=== PATIENT | male | born 1965 | race African-American/Black ===

== ENCOUNTER 2020-01-30 18:50 | Emergency (ER) | payer SELFPAY ==
[2020-01-30 18:52] VITALS: BP 164/97; PULSE 67; RESP 17; TEMP 36.7; O2SAT 99; BMI 32.1
--- NOTE | 2020-01-30 20:13 | ED.VIS.GEN ---
History of Present Illness Chief Complaint: Male Pain/Injury Informant: Patient Narrative: Patient presents after concern for an STD. He states he had unprotected intercourse last week and by the middle week was experiencing a penile discharge and dysuria. States he believes he had a STD many years ago. He denies any fevers rashes or sores. Past Medical History - Allergies and Home Meds Allergies/Adverse Reactions: Allergies No Known Allergies Allergy (Verified 01/30/20 18:52) Primary Care Physician: Care Physician,No Primary [Primary Care Provider] - Smoking Status: Current every day smoker Review of Systems General: Denies: Chills, Fever, Sweats Eyes: Denies: Visual changes - bilaterally, Diplopia ENT: Denies: Rhinorrhea, Sore throat Cardiovascular: Denies: Chest pain, Palpitations Respiratory: Denies: Dyspnea, Cough, Dyspnea on exertion Gastrointestinal: Denies: Abdominal pain, Nausea, Vomiting, Diarrhea, Melena, Hematochezia Genitourinary: Reports: Dysuria, - - Penile drainage. Denies: Hematuria, Frequency Musculoskeletal: Denies: Back pain, Extremity Pain Skin: Denies: Rash, Wounds Neurological: Denies: Headache, Weakness, Numbness Physical Exam Vital Signs/Narrative: Vital Signs Temp Pulse Resp BP Pulse Ox 01/30/20 18:52 98.1 F 67 17 164/97 H 99 Inital Vital Signs reviewed: Yes General: Well nourished, Well developed, No Acute Distress Head: Normocephalic, Atraumatic Eyes: Perrl, EOMI ENT: Moist mucous membranes, No rhinorrhea Neck: Supple, Nontender Cardiovascular: Regular rate, Regular rhythm, No murmurs Respiratory: No distress, CTA bilaterally, Chest nontender Abdomen: Soft, Nontender, Nondistended, Normal bowel sounds : - - Patient is circumcised. There is a light yellow clear drainage at the urethral meatus. There are no chancres or other skin lesions noted Back: Nontender, Normal Inspection Extremities: Nontender, No edema Skin: Normal color, No rash Neurological: Alert, Oriented x3, Cranial nerves II-XII grossly intact, Normal Strength, Normal Sensation Psychological: Normal affect, Normal Mood Diagnostic/Tx/Re-eval - Medical Decision Making GC and Chlamydia will be sent as well as urine culture. He will be treated with Rocephin and azithromycin. [facility] care physician for further STD checks. ED Disposition - Plan for ED Patient: Disposition: Home or Assisted Living Diagnosis: Urethritis Instructions: URETHRITIS, Male (GC vs. Chlam) Additional Instructions: I would strongly urge you not to have unprotected intercourse. He should have further STD testing for syphilis and HIV. Please contact [facility].
[2020-01-30] MEDS: Ceftriaxone 500 MG Vial 250 MG IM (20:49)
[2020-01-30] MEDS: Azithromycin 250 MG Tablet 1000 MG PO (20:49)
[2020-01-30 20:52] VITALS: BP 145/86; PULSE 85; RESP 16; O2SAT 97
--- NOTE | 2020-01-30 21:12 | ED.RN ---
PT OBSERVED FOR SHOT TIME GREATER THAN 15 MINUTES, NO REACTION NOTED BY THIS NURSE. PT D/C
[2020-01-30 22:43] LABS: Chlamydia Trachomatis by PCR Negative (Negative); Probe Check PASS
[2020-01-30 22:46] LABS: Neisserai gonorrhoeae by PCR Positive (Negative)
--- NOTE | 2020-01-30 23:01 | ED.RN ---
LAB RESULTS GIVEN TO DR LÓPEZ. PT ALREADY APPROPRIATELY TREATED PER DR LÓPEZ. NO FURTHER TREATMENT. ATTEMPTED TO CONTACT PT. LEFT A MESSAGE
--- NOTE | 2020-01-30 23:05 | ED.RN ---
THIS NURSE NOTIFIED PT OF HIS RESULTS.
== END 2020-01-30 21:12 | disposition home or self-care (01) ==
LOC: ED 20:29
PROVIDERS: Emergency Provider Emergency Medicine
DX: N34.2 Other urethritis (principal); F17.200 Nicotine dependence, unspecified, uncomplicated
CPT/HCPCS: 87086; 87088; 87491; 87591; 96372; 99283

== ENCOUNTER 2020-05-07 16:55 | Inpatient (IN) | payer SELFPAY ==
[2020-05-07 16:56] VITALS: BP 152/93; PULSE 60; RESP 18; TEMP 36.7; O2SAT 100; BMI 28.5
--- NOTE | 2020-05-07 17:12 | CT_ITS ---
STUDY: CT ABDOMEN AND PELVIS WITH CONTRAST REASON FOR EXAM: Male, 54 years old. CONSTIPATION X 2 DAYS,RECTAL PAIN AFTER STRAINING TO GET STOOL OUT RADIATION DOSAGE (If Supplied By Facility): CTDIvol = ( 21.78 ) mGy, DLP = ( 2338.49 ) mGycm TECHNIQUE: Transaxial images were obtained from the dome of the diaphragm to the symphysis pubis without oral contrast. IV 100mL Isovue-370 was administered. Sagittal and coronal images were reconstructed. Individualized dose optimization techniques were used for this CT. COMPARISON: None. FINDINGS: The visualized lung bases are unremarkable. The visualized portions of the heart are within normal limits. Subcentimeter hypodensity of the right liver. Otherwise normal right liver. Nondistended normal appearing gallbladder. Normal spleen. Normal pancreas. There is a hypoattenuating left upper quadrant mass measuring 10.2 x 6.0 x 6.6 cm situated anterior to the spleen to the left of the stomach anterior and just above the pancreatic tail. The diaphragm is above and has no contact with the left kidney and is separate from the splenic flexure of the colon. This mass appears separate from the tail of the pancreas and is most intimately associated with the left lateral wall of the stomach from which it is not separable Normal bilateral adrenal glands. Multiple cortical scars of the right kidney. Otherwise normal right kidney without hydronephrosis, renal or ureteral stones. Multiple shallow cortical scars of the left kidney without hydronephrosis, renal or ureteral stones. Normal visualized stomach. Normal small intestine. The colon is nondistended with a moderate amount of stool in the proximal and left colon. The distal colon is decompressed. There is a you shaped fluid collection surrounding the rectum on the left, posterior and right surfaces which is approximately 1.8 cm in thickness and 4.6 cm in length on the longer left side. Small amount of air is present on the left side. Process remains below the levator ani muscle. There is non-visualization of the appendix. Minimal plaque of the aorta. Normal inferior vena cava. Normal retroperitoneum. Walled urinary bladder currently empty. Shotty inguinal lymph nodes. 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 CT/Abdomen/Pelvis W IV Cont ONLY IMPRESSION: Saddlebag shaped fluid collection surrounds the rectum from the right side, left side and posteriorly which is 1.8 cm in thickness and 4.6 cm in length with a small amount of air present on the left. Findings consistent with a perirectal abscess. Otherwise no small bowel or colon findings. Negative for evidence of obstruction, perforation or other inflammatory changes. A moderate amount of stool is present throughout most of the colon. Hypoattenuating 10.2 x 6.0 x 6.6 cm mass of the left upper quadrant situated between the major organs as described above but most intimately associated with the left lateral wall of the proximal stomach. 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 Appears to be separate from the spleen, pancreas, colon or left kidney. Subcentimeter hypodensity of the right liver which is too small to accurately assess. Otherwise normal right liver. Nondistended gallbladder, normal spleen and pancreas. Multifocal areas of cortical scarring in the kidneys. No acute renal findings. Negative for hydronephrosis or stones. Thick walled urinary bladder currently nondistended. Mild atherosclerotic changes and tortuosity of the aortic and iliac vessels without aneurysm. Bilateral shotty inguinal adenopathy. Electronically Signed: Nguyen Coronel MD at 19:00 EDT , Service support ,
--- NOTE | 2020-05-07 17:13 | ED.VIS.GEN ---
History of Present Illness Chief Complaint: Other, Pain/Inj Detail of Chief Complaint: rectal pain Informant: Patient Onset: Days - 2 Context: Gradual Onset Timing: Continuous Quality: pain Location: anus/rectum Current Severity: Moderate Maximum Severity: Severe Worsened by: sitting on affected area, BMs, urinating Relieved by: nothing Associated Symptoms: no abd pain, fevers, n/v Narrative: Patient states he was constipated for a couple days, having very hard stools and was doing some straining to get them out. He states at some point his bowel movements came back to normal, he has been having them, and started having this rectal pain. It has been worsening. It is constant. Does not radiate, no abdominal pain, nausea, vomiting, fevers, discharge, bleeding, melena. He does not have dysuria, but he has noticed he is not making quite as strong a stream of urine, it is going more frequently. No hematuria. Past Medical History - Allergies and Home Meds Allergies/Adverse Reactions: Allergies No Known Allergies Allergy (Verified 05/07/20 16:56) Primary Care Physician: Care Physician,No Primary [Primary Care Provider] - Past Medical History: None Smoking Status: Current every day smoker Review of Systems General: Denies: Chills, Fever, Sweats Eyes: Denies: Visual changes - bilaterally, Diplopia ENT: Denies: Rhinorrhea, Sore throat Cardiovascular: Denies: Chest pain, Palpitations Respiratory: Denies: Dyspnea, Cough, Dyspnea on exertion Gastrointestinal: Reports: Constipation. Denies: Abdominal pain, Nausea, Vomiting, Diarrhea, Melena, Hematochezia Genitourinary: Reports: Frequency, - - rectal pain. Denies: Dysuria, Hematuria Musculoskeletal: Denies: Back pain, Swelling, Extremity Pain Skin: Denies: Rash, Wounds Neurological: Denies: Headache, Weakness, Numbness Physical Exam Vital Signs/Narrative: Vital Signs Temp Pulse Resp BP Pulse Ox 05/07/20 16:56 98.1 F 60 18 152/93 H 100 Inital Vital Signs reviewed: Yes General: Well nourished, Well developed, No Acute Distress Head: Normocephalic, Atraumatic Eyes: Perrl, EOMI ENT: Moist mucous membranes, No rhinorrhea Neck: Supple, Nontender Cardiovascular: Regular rate, Regular rhythm, No murmurs Respiratory: No distress, CTA bilaterally, Chest nontender Abdomen: Soft, Nontender, Nondistended, Normal bowel sounds Rectal: Guaiac negative - 9 O'clock and 12 o'clock areas without palpable mass/swelling/lesion. No thrombosed hemorroid. Single skin tag vs. external hemorrhoid, very small, nontender, no sign of recent bleeding, opposite tender perianal area. no redness or obvious abscess. MACY deferred due to pain/tenderness., Tenderness - 9 O'clock and 12 o'clock areas without palpable mass/swelling/lesion. No thrombosed hemorroid. Single skin tag vs. external hemorrhoid, very small, nontender, no sign of recent bleeding, opposite tender perianal area. no redness or obvious abscess. MACY deferred due to pain. Back: Nontender, Normal Inspection Extremities: Nontender, No edema Skin: Normal color, No rash Neurological: Alert, Oriented x3, Cranial nerves II-XII grossly intact, Normal Strength, Normal Sensation Psychological: Normal affect, Normal Mood Diagnostic/Tx/Re-eval Impressions Abdomen/Pelvis CT 05/07/20 17:12 IMPRESSION: Saddlebag shaped fluid collection surrounds the rectum from the right side, left side and posteriorly which is 1.8 cm in thickness and 4.6 cm in length with a small amount of air present on the left. Findings consistent with a perirectal abscess. Otherwise no small bowel or colon findings. Negative for evidence of obstruction, perforation or other inflammatory changes. A moderate amount of stool is present throughout most of the colon. Hypoattenuating 10.2 x 6.0 x 6.6 cm mass of the left upper quadrant situated between the major organs as described above but most intimately associated with the left lateral wall of the proximal stomach. 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 Appears to be separate from the spleen, pancreas, colon or left kidney. Subcentimeter hypodensity of the right liver which is too small to accurately assess. Otherwise normal right liver. Nondistended gallbladder, normal spleen and pancreas. Multifocal areas of cortical scarring in the kidneys. No acute renal findings. Negative for hydronephrosis or stones. Thick walled urinary bladder currently nondistended. Mild atherosclerotic changes and tortuosity of the aortic and iliac vessels without aneurysm. Bilateral shotty inguinal adenopathy. Electronically Signed: Nguyen Coronel MD at 19:00 EDT , Service support , 05/07/20 17:12 Abdomen/Pelvis W IV Cont ONLY [CT] Stat Laboratory Results 05/07/20 05/07/20 05/07/20 17:20 17:20 18:09 WBC 14.6 H RBC 4.44 L Hgb 13.7 Hct 40.6 MCV 91.4 MCH 30.9 MCHC 33.7 RDW Std Deviation 46.9 H RDW Coeff of Xiao 13.9 Plt Count 289 MPV 9.7 Immature Gran % (Auto) 0.500 Neut % (Auto) 80.1 H Lymph % (Auto) 10.8 L [place] % (Auto) 8.2 Eos % (Auto) 0.2 Baso % (Auto) 0.2 Absolute Neuts (auto) 11.7 H Absolute Lymphs (auto) 1.57 Nucleated RBC % 0 Sodium 138 Potassium 5.2 H Chloride 108 H Carbon Dioxide 25.0 Anion Gap 5 BUN 10 Creatinine 0.99 Estim Creat Clear Calc 93.63 Est GFR (MDRD) Af Amer 101 Est GFR (MDRD) Non-Af 83 BUN/Creatinine Ratio 10.1 Glucose 110 H Calcium 9.2 Urine Color Yellow Urine Clarity Clear Urine pH 6.0 Ur Specific [place] 1.015 Urine Protein 15 H Urine Glucose (UA) Normal Urine Ketones Negative Urine Occult Blood 25 H Urine Nitrite Negative Urine Bilirubin Negative Urine Urobilinogen 1 H Ur Leukocyte Esterase 100 H Urine RBC 0-5 SEEN Urine WBC 10-25 SEEN Ur Squamous Epith Cells 0-5 SEEN Urine Bacteria 2+ Urine Mucus 3+ - Medical Decision Making Labs show a leukocytosis as above and CT was performed since patient had pain was very tender but inspection was relatively unremarkable without signs of any hemorrhoids that would be responsible for her symptoms. This showed presence of a perirectal abscess, in addition to an incidental mass further up in his left upper quadrant. Discussed both of these with the patient and surgery, plan will be for admission, started on Zosyn. Patient is clinically and hemodynamically stable. ED Disposition - Plan for ED Patient: Disposition: Acute Care [facility] Diagnosis: Perirectal abscess, Intraabdominal mass
[2020-05-07] MEDS: Ketorolac 30 MG/ML Syringe 15 MG IV (17:25)
[2020-05-07 17:26] LABS: Absolute Lymphocyte Count 1.57 X10^3/uL (0.83-4.51); Absolute Neutrophil Count 11.7 X10^3/uL (2.0-7.7); Basophil# 0.03 X10^3/uL; Basophil% 0.2 % (0-1); Eosinophil# 0.03 X10^3/uL; Eosinophils% 0.2 % (0-5); Hematocrit 40.6 % (40-54); Hemoglobin 13.7 g/dL (13.0-16.5); Lymphocyte # 1.57 X10^3/ul (4.0); Lymphocyte % 10.8 % (19-41); Mean Corp Hgb Conc 33.7 g/dL (32-36); Mean Corpuscular Hgb 30.9 pg (27.0-32.0); Mean Corpuscular Volume 91.4 fL (80-94); Mean Platelet Vol. 9.7 fl (6.2-12.0); Monocyte% 8.2 % (0-10); NRBC Flagged by Analyzer 0 % (0-5); Neutrophil # 11.65 X10^3/uL (2.7-7.7); Neutrophil % 80.1 % (47-70); Platelet Count 289 K/mm3 (150-450); RBC Distribution Width CV 13.9 % (11.6-14.6); RBC Distribution Width SD 46.9 fl (35.1-43.9); Red Blood Count 4.44 M/mm3 (4.6-6.2); White Blood Count 14.6 K/mm3 (4.4-11.0)
[2020-05-07] MEDS: 0.9% Normal Saline 1,000 ML 1000 ML IV (17:27)
[2020-05-07 18:10] LABS: Anion Gap 5 (5-15); BUN 10 mg/dL (7-18); BUN/Creat Ratio 10.1 RATIO (10-20); Calcium,Total 9.2 mg/dL (8.5-10.1); Chloride 108 mmol/L (98-107); Creatinine, Serum 0.99 mg/dL (0.70-1.30); EST Glomerular Filtration Rate 83 mL/min (>60); Est Glom Filt Rate - Afr Amer 101 mL/min (>60); Estimated Creatinine Clearance 93.63 ml/min; Glucose 110 mg/dL (74-106); Potassium 5.2 mmol/L (3.5-5.1); Sodium Level 138 mmol/L (136-145)
[2020-05-07 18:16] LABS: Color, Urine Yellow (Yellow); Glucose, Dipstick Normal (Normal); Ketone-Dipstick Negative (Negative); Leukocyte Esterase-Dipstick 100 /ul (Negative); Nitrite-Dipstick Negative (Negative); Occult Blood-Urine 25 /ul (Negative); Protein-Dipstick 15 mg/dl (Negative); Specific Gravity, Urine 1.015 (1.002-1.030); Urine Bilirubin Dipstick Negative (Negative); Urine Clarity Clear (Clear); Urine Urobilinogen 1 mg/dl (Normal)
[2020-05-07 18:23] LABS: Bacteria 2+ /hpf (None Seen); Mucous, Urine 3+ /hpf (<or=2+); Red Blood Cells-Urine 0-5 SEEN /hpf (0-5); Squamous Epithelial Cells - UA 0-5 SEEN /hpf (0-5); White Blood Cells 10-25 SEEN /hpf (0-5)
[2020-05-07 19:13] VITALS: BP 145/83; PULSE 58; RESP 18; O2SAT 98
--- NOTE | 2020-05-07 20:20 | PCM.HP.STD ---
Problem List (1) Perirectal abscess Status: Acute History of Present Illness Date of Admission: 05/07/20 The patient is a 54 year old M presents with 1 week of rectal pain. He reports the pain started last weekend and has been slightly getting worse until now. He reports no drainage. No history of abscesses in the past. No fevers or chills or nausea or vomiting. Pain is in the rectal area and does not radiate. Past Medical History Allergies No Known Allergies Allergy (Verified 05/07/20 16:56) Home Medications: Ambulatory Orders Medication Instructions Recorded NK 01/30/20 Surgical History: no surgical history Smoking Status: Current every day smoker - *Family History Maternal History Items: No pertinent history Review of Systems Constitutional: Denies: Anorexia, Chills, Fever Cardiovascular: Denies: Chest Pain Respiratory: Denies: Cough, Shortness of Breath Gastrointestinal: Reports: - - Rectal pain. Denies: Abdominal Pain Genitourinary: Denies: Dysuria, Frequency Skin: Denies: Jaundice Hematologic/ Lymphatic: Denies: Anemia VTE Information - Inpt Only VTE Present on Admission: No VTE Mechan Device Prophylaxis: SCD's Patient Problems: Active and Suspected Problems Perirectal abscess (Acute) Intraabdominal mass (Acute) - Physical Exam Vitals/I&O's: Vital Signs Temp Pulse Resp BP Pulse Ox 98.1 F 58 L 18 145/83 H 98 05/07/20 16:56 05/07/20 19:13 05/07/20 19:13 05/07/20 19:13 05/07/20 19:13 Oxygen Delivery Method Room Air Weight: 210 lb Body Mass Index (BMI) 28.5 Intake and Output for Last 24 Hours 05/05/20 05/06/20 05/07/20 23:59 23:59 23:59 Intake Total 1050 / 1050 Balance 1050 / 1050 General: Alert, Oriented x3, Cooperative, No apparent distress Neck: No JVD Lungs: Normal air movement Cardiovascular: Regular rate, Regular Rhythm Abdomen: Soft, Non Tender, Non-Distended, - - Pain in the posterior perirectal area with no fluctuance or drainage Extremities: No clubbing Musculoskeletal: No Muscle Wasting Neurological: Cranial nerves II-XII grossly intact Psych/Mental Status: Normal Affect Laboratory Results 05/07/20 17:20: WBC 14.6 H, RBC 4.44 L, Hgb 13.7, Hct 40.6, MCV 91.4, MCH 30.9, MCHC 33.7, RDW Std Deviation 46.9 H, RDW Coeff of Xiao 13.9, Plt Count 289, MPV 9.7, Immature Gran % (Auto) 0.500, Neut % (Auto) 80.1 H, Lymph % (Auto) 10.8 L, [place] % (Auto) 8.2, Eos % (Auto) 0.2, Baso % (Auto) 0.2, Absolute Neuts (auto) 11.7 H, Absolute Lymphs (auto) 1.57, Nucleated RBC % 0 05/07/20 17:20: Sodium 138, Potassium 5.2 H, Chloride 108 H, Carbon Dioxide 25.0, Anion Gap 5, BUN 10, Creatinine 0.99, Estim Creat Clear Calc 93.63, Est GFR (MDRD) Af Amer 101, Est GFR (MDRD) Non-Af 83, BUN/Creatinine Ratio 10.1, Glucose 110 H, Calcium 9.2 05/07/20 18:09: Urine Color Yellow, Urine Clarity Clear, Urine pH 6.0, Ur Specific [place] 1.015, Urine Protein 15 H, Urine Glucose (UA) Normal, Urine Ketones Negative, Urine Occult Blood 25 H, Urine Nitrite Negative, Urine Bilirubin Negative, Urine Urobilinogen 1 H, Ur Leukocyte Esterase 100 H, Urine RBC 0-5 SEEN, Urine WBC 10-25 SEEN, Ur Squamous Epith Cells 0-5 SEEN, Urine Bacteria 2+, Urine Mucus 3+ 05/07/20 19:38: COVID-19 (ANKIT) Pending Clinical Impression(s) from Imaging Studies Abdomen/Pelvis CT 05/07/20 17:12 IMPRESSION: Saddlebag shaped fluid collection surrounds the rectum from the right side, left side and posteriorly which is 1.8 cm in thickness and 4.6 cm in length with a small amount of air present on the left. Findings consistent with a perirectal abscess. Otherwise no small bowel or colon findings. Negative for evidence of obstruction, perforation or other inflammatory changes. A moderate amount of stool is present throughout most of the colon. Hypoattenuating 10.2 x 6.0 x 6.6 cm mass of the left upper quadrant situated between the major organs as described above but most intimately associated with the left lateral wall of the proximal stomach. 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 Appears to be separate from the spleen, pancreas, colon or left kidney. Subcentimeter hypodensity of the right liver which is too small to accurately assess. Otherwise normal right liver. Nondistended gallbladder, normal spleen and pancreas. Multifocal areas of cortical scarring in the kidneys. No acute renal findings. Negative for hydronephrosis or stones. Thick walled urinary bladder currently nondistended. Mild atherosclerotic changes and tortuosity of the aortic and iliac vessels without aneurysm. Bilateral shotty inguinal adenopathy. Electronically Signed: Nguyen Coronel MD at 19:00 EDT , Service support , Assessment/Plan All Active Problems Perirectal abscess (Acute) Intraabdominal mass (Acute) 54-year-old male with perirectal abscess 1. Patient has a perirectal abscess seen on CT scan and an elevated white count. I discussed drainage with him in detail. Patient does not show any signs of sepsis and I believe he is stable enough to have drainage in the morning. I will admit him and start him on antibiotics. Plan for incision and drainage in the morning in the operating room and exam under anesthesia and possible fistulotomy. I discussed this with the patient in detail. I discussed the risks including but not limited to bleeding, infection, fecal incontinence, urinary retention, recurrence of abscess, seton placement. The patient understands all of this and is willing to proceed. 2. 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 This is likely just according to the CT scan and it is very large and in close proximity to the spleen. I would recommend that the patient follow-up at a tertiary care center for evaluation for resection of this. I will make a referral when he is discharged. Wilner Li MD Pager: [facility] [address] [place] [address], [address] [place] [address] Office:
[2020-05-07 20:22] VITALS: BP 138/77; PULSE 54; RESP 18; TEMP 36.9; O2SAT 98
[2020-05-07 20:51] VITALS: BMI 28.5; BMI 28.9
[2020-05-07 20:52] VITALS: BP 152/82; PULSE 80; RESP 16; TEMP 36.8; O2SAT 99
[2020-05-07] MEDS: 0.9% Normal Saline 1,000 ML 100 ML IV (22:18)
[2020-05-07] MEDS: oxyCODONE 5 MG Tablet PO (22:27)
[2020-05-07 22:30] VITALS: PULSE 80; RESP 16; O2SAT 99
[2020-05-08] VITALS (14 sets, daily range): BP systolic 108–170; BP diastolic 62–96; PULSE 53–68; RESP 16–18; TEMP 36.7–37.6; O2SAT 94–100; BMI 28.9
[2020-05-08] MEDS: Morphine 2 MG/ML Syringe IV ×3 (01:40→06:58)
[2020-05-08 06:03] LABS: Absolute Lymphocyte Count 1.04 X10^3/uL (0.83-4.51); Absolute Neutrophil Count 10.5 X10^3/uL (2.0-7.7); Basophil# 0.02 X10^3/uL; Basophil% 0.2 % (0-1); Eosinophil# 0.05 X10^3/uL; Eosinophils% 0.4 % (0-5); Hematocrit 37.7 % (40-54); Hemoglobin 12.6 g/dL (13.0-16.5); Lymphocyte # 1.04 X10^3/ul (4.0); Lymphocyte % 8.1 % (19-41); Mean Corp Hgb Conc 33.4 g/dL (32-36); Mean Corpuscular Volume 92.9 fL (80-94); Mean Platelet Vol. 9.9 fl (6.2-12.0); Monocyte# 1.22 X10^3/uL; Monocyte% 9.5 % (0-10); NRBC Flagged by Analyzer 0 % (0-5); Neutrophil # 10.51 X10^3/uL (2.7-7.7); Neutrophil % 81.3 % (47-70); Platelet Count 262 K/mm3 (150-450); Red Blood Count 4.06 M/mm3 (4.6-6.2); White Blood Count 12.9 K/mm3 (4.4-11.0)
[2020-05-08 06:25] LABS: Anion Gap 7 (5-15); BUN 10 mg/dL (7-18); BUN/Creat Ratio 11.3 RATIO (10-20); Calcium,Total 8.8 mg/dL (8.5-10.1); Chloride 108 mmol/L (98-107); Creatinine, Serum 0.89 mg/dL (0.70-1.30); EST Glomerular Filtration Rate 95 mL/min (>60); Est Glom Filt Rate - Afr Amer 115 mL/min (>60); Estimated Creatinine Clearance 104.14 ml/min; Glucose 103 mg/dL (74-106); Potassium 3.6 mmol/L (3.5-5.1); Sodium Level 140 mmol/L (136-145)
--- NOTE | 2020-05-08 07:28 | PN.SURG_ITS ---
Patient Problems: Active and Suspected Problems Perirectal abscess (Acute) Intraabdominal mass (Acute) Subjective: Patient is doing well with less pain this morning - Physical Exam Vitals/I&O's: Vital Signs Temp Pulse Resp BP Pulse Ox 98.5 F 60 16 144/62 H 99 05/08/20 03:39 05/08/20 03:39 05/08/20 03:39 05/08/20 03:39 05/08/20 03:39 Oxygen Delivery Method Room Air Weight: 213 lb 2.992 oz Body Mass Index (BMI) 28.9 Intake and Output for Last 24 Hours 05/06/20 05/07/20 05/08/20 23:59 23:59 23:59 Intake Total 1050 / 1770 720 / 720 Output Total 300 / 300 Balance 1050 / 1770 420 / 420 General: Alert, Oriented x3 Lungs: Normal air movement Abdomen: Soft, Non Tender, Non-Distended Laboratory Results 05/07/20 17:20: WBC 14.6 H, RBC 4.44 L, Hgb 13.7, Hct 40.6, MCV 91.4, MCH 30.9, MCHC 33.7, RDW Std Deviation 46.9 H, RDW Coeff of Xiao 13.9, Plt Count 289, MPV 9.7, Immature Gran % (Auto) 0.500, Neut % (Auto) 80.1 H, Lymph % (Auto) 10.8 L, [place] % (Auto) 8.2, Eos % (Auto) 0.2, Baso % (Auto) 0.2, Absolute Neuts (auto) 11.7 H, Absolute Lymphs (auto) 1.57, Nucleated RBC % 0 05/07/20 17:20: Sodium 138, Potassium 5.2 H, Chloride 108 H, Carbon Dioxide 25.0, Anion Gap 5, BUN 10, Creatinine 0.99, Estim Creat Clear Calc 93.63, Est GFR (MDRD) Af Amer 101, Est GFR (MDRD) Non-Af 83, BUN/Creatinine Ratio 10.1, Glucose 110 H, Calcium 9.2 05/07/20 18:09: Urine Color Yellow, Urine Clarity Clear, Urine pH 6.0, Ur Specific [place] 1.015, Urine Protein 15 H, Urine Glucose (UA) Normal, Urine Ketones Negative, Urine Occult Blood 25 H, Urine Nitrite Negative, Urine Bilirubin Negative, Urine Urobilinogen 1 H, Ur Leukocyte Esterase 100 H, Urine RBC 0-5 SEEN, Urine WBC 10-25 SEEN, Ur Squamous Epith Cells 0-5 SEEN, Urine Bacteria 2+, Urine Mucus 3+ 05/07/20 19:38: COVID-19 (ANKIT) Not Detected 05/08/20 05:24: WBC 12.9 H, RBC 4.06 L, Hgb 12.6 L, Hct 37.7 L, MCV 92.9, MCH 31.0, MCHC 33.4, RDW Std Deviation 48.0 H, RDW Coeff of Xiao 14.0, Plt Count 262, MPV 9.9, Immature Gran % (Auto) 0.500, Neut % (Auto) 81.3 H, Lymph % (Auto) 8.1 L, [place] % (Auto) 9.5, Eos % (Auto) 0.4, Baso % (Auto) 0.2, Absolute Neuts (auto) 10.5 H, Absolute Lymphs (auto) 1.04, Nucleated RBC % 0 05/08/20 05:24: Sodium 140, Potassium 3.6, Chloride 108 H, Carbon Dioxide 25.0, Anion Gap 7, BUN 10, Creatinine 0.89, Estim Creat Clear Calc 104.14, Est GFR (MDRD) Af Amer 115, Est GFR (MDRD) Non-Af 95, BUN/Creatinine Ratio 11.3, Glucose 103, Calcium 8.8 Current Medications Acetaminophen (Tylenol) 650 mg PO Q4H PRN PRN PRN Reason: Pain Score 1-10/10/FEVER Sodium Chloride () 1,000 mls @ 100 mls/hr IV .Q10H [facility] Last Admin: 05/07/20 22:18 Dose: 100 mls/hr Documented by: Piperacillin Sod/Tazobactam (Sod 3.375 gm/ Sodium Chloride) 50 mls @ 12.5 m ls/hr IV Q8 CHARLEEN Last Admin: 05/08/20 03:37 Dose: 12.5 mls/hr Documented by: Sodium Chloride () 250 mls @ 15 mls/hr IV .[id number] PRN PRN Reason: Saline Flush Last Infusion: 05/08/20 03:45 Dose: 0 mls/hr Documented by: Sodium Chloride () 250 mls @ 15 mls/hr IV .[id number] PRN PRN Reason: Additional IVPB Infusion Ketorolac Tromethamine (Toradol (Bkc)) 15 mg IV Q8H PRN PRN PRN Reason: pain 1-10/10 Stop: 05/13/20 06:57 Morphine Sulfate () 2 - 4 mg IV Q2H PRN PRN PRN Reason: Pain Score 4-10/10 Last Admin: 05/08/20 06:58 Dose: 2 mg Documented by: Morphine Sulfate () 2 - 4 mg IV Q2H PRN PRN PRN Reason: Pain Score 4-10/10 Ondansetron HCl (Zofran) 4 mg IV Q6H PRN PRN PRN Reason: NAUSEA Oxycodone HCl (Oxyir) 5 - 10 mg PO Q4H PRN PRN PRN Reason: Pain Score 4-10/10 Last Admin: 05/07/20 22:27 Dose: 10 mg Documented by: Sodium Chloride () 10 - 40 ml IV UD PRN PRN Reason: SALINE FLUSH Medical Necessity - Tobacco Use Smoking Status: Current every day smoker Tobacco Use: Cigarettes Assessment/Plan All Active Problems Perirectal abscess (Acute) Intraabdominal mass (Acute) 54-year-old male with perirectal abscess 1. Patient was started on antibiotics and feels better this morning. White count is decreased. I will take him this morning for incision and drainage of the abscess with possible seton versus fistulotomy. Patient's questions were answered and the patient wishes to proceed. Wilner Li MD Pager: [facility] [address] [place] [address] [address] [place] [address] Office:
[2020-05-08] MEDS: 0.9% Normal Saline 1,000 ML 100 ML IV (08:19)
[2020-05-08] MEDS: Lubricating Jelly 60 GM Tube 30 GM TOPICAL (09:09)
[2020-05-08] MEDS: Bupivacaine Mpf 0.5% 30 ML VIAL (09:10)
--- NOTE | 2020-05-08 10:19 | PCM.OPRPT ---
Problem List (1) Perirectal abscess Status: Acute Report of Operation Date of Procedure: 05/08/20 Pre-Operative Diagnosis: Perirectal abscess Post-Operative Diagnosis: Same Surgery/Procedure Performed:: Exam under anesthesia with incision and drainage of perirectal abscess Specimen's removed: Culture of abscess fluid Drains: Quarter inch iodoform gauze Description of Procedure: Patient was brought to the operating room and general anesthesia was induced. Patient was placed in lithotomy position and the perirectal area was prepped and draped in usual sterile fashion. Lubricated finger was placed into the rectum and as well as a retractor. The patient appeared to have pus draining from an opening in the posterior anorectal wall. This was cultured. The patient had extensive drainage through this opening. Next incision was made in the left gluteal cleft and deepened to the abscess cavity. This was irrigated and suctioned dry and packed with quarter inch iodoform gauze. I was unable to locate the fistula tract after drainage of the abscess to place a seton suture. Patient was taken to PACU in stable condition. - Admit VTE Documentation VTE Mechan Device Prophylaxis: SCD's
--- NOTE | 2020-05-08 13:26 | CASEMGMT ---
RN CM Assessment Note Intro role of CM to patient in room. Pt is awake, alert and able to participate in assessment. States he has no care needs, and does not use equipment. Pt is ambulatory, independent and able to f./u with Dr. Li on discharge. Diagnosis: Rectal abcess, I&D PCP: No PCP. List of area Specialists: Dr. Li Insurance: none Preferred Pharmacy: [facility] Prescription Benefit: yes LNOK: Mother, Lorena Huang Living Arrangements: Lives independently. Tranportation: drives SW consult: pt is self pay and will need further f/u for medical on dc. DME: none Patient DC Goals: Home on discharge DC Plan: anticipate home. If dressing changes are needed, pt would need to have someone assist with this. When asked, pt said they haven't said anything about that yet. Will follow and assist with any dc needs. Jerrica HERRERA RN ACM
[2020-05-08] MEDS: Ketorolac 15 MG/ML Vial IV ×2 (14:58→23:28)
[2020-05-08] MEDS: 0.9% Saline Lock 10 ML Syringe IV ×2 (14:58→23:28)
--- NOTE | 2020-05-08 16:25 | CASEMGMT ---
Social Work Note Pt is listed as self-pay. SW reviewed PFS notes, pt refused self-pay deposit and HCAP was provided. PFS attempted to call pt's room today with no answer. SW will continue to follow for any financial concerns. Juliann Mclaughlin HAND SEWER, MANAGEMENT TECHNICIAN
[2020-05-08] MEDS: hydrALAZINE 25 MG Tablet PO (17:32)
[2020-05-08] MEDS: Acetaminophen 325 MG Tablet 650 MG PO (20:15)
[2020-05-08] MEDS: 0.9% Normal Saline 1,000 ML 40 ML IV (20:17)
[2020-05-08] MEDS: oxyCODONE 5 MG Tablet PO (21:44)
[2020-05-09 02:52] VITALS: BP 137/81; PULSE 52; RESP 18; TEMP 37.1; O2SAT 98
[2020-05-09] MEDS: 0.9% Saline Lock 10 ML Syringe IV (03:07)
[2020-05-09] MEDS: oxyCODONE 5 MG Tablet PO (05:09)
[2020-05-09 06:03] LABS: Absolute Lymphocyte Count 1.11 X10^3/uL (0.83-4.51); Basophil# 0.03 X10^3/uL; Basophil% 0.2 % (0-1); Eosinophil# 0.09 X10^3/uL; Eosinophils% 0.7 % (0-5); Hematocrit 37.6 % (40-54); Hemoglobin 12.5 g/dL (13.0-16.5); Lymphocyte # 1.11 X10^3/ul (4.0); Lymphocyte % 8.3 % (19-41); Mean Corp Hgb Conc 33.2 g/dL (32-36); Mean Corpuscular Hgb 30.5 pg (27.0-32.0); Mean Corpuscular Volume 91.7 fL (80-94); Mean Platelet Vol. 9.8 fl (6.2-12.0); Monocyte# 1.07 X10^3/uL; NRBC Flagged by Analyzer 0 % (0-5); Neutrophil # 11.01 X10^3/uL (2.7-7.7); Neutrophil % 82.1 % (47-70); Platelet Count 281 K/mm3 (150-450); RBC Distribution Width CV 13.6 % (11.6-14.6); RBC Distribution Width SD 46.4 fl (35.1-43.9); White Blood Count 13.4 K/mm3 (4.4-11.0)
[2020-05-09 06:28] LABS: Anion Gap 7 (5-15); BUN 10 mg/dL (7-18); BUN/Creat Ratio 9.8 RATIO (10-20); Calcium,Total 8.5 mg/dL (8.5-10.1); Chloride 105 mmol/L (98-107); Creatinine, Serum 1.02 mg/dL (0.70-1.30); EST Glomerular Filtration Rate 81 mL/min (>60); Est Glom Filt Rate - Afr Amer 98 mL/min (>60); Estimated Creatinine Clearance 90.87 ml/min; Glucose 123 mg/dL (74-106); Potassium 3.5 mmol/L (3.5-5.1); Sodium Level 136 mmol/L (136-145)
--- NOTE | 2020-05-09 07:30 | PCM.DC.REC ---
Discharge Diet: No Restrictions Discharge Activity: Return to Normal Activity, May Drive, May Shower, May Take a Tub Bath Additional Activity Instructions:: Be aware that pain medications may cause nausea. You should typically eat light foods as you take your pain medications. Pain medications may also cause constipation, if you have difficulty with this please discuss with your doctor. Call your doctor if your incision/area has: Continuous Slow Oozing, Sudden Increased Bleeding, Increased Pain/ Swelling, Increased Redness, Foul Smelling Discharge, Swelling at the incision site Call your doctor if you observe: Fever of 101 or Higher Allergies/Adverse Reactions: Allergies No Known Allergies Allergy (Verified 05/07/20 16:56) Medications to take at Discharge Acetaminophen [Tylenol Tablet] 650 mg PO Q4H PRN PRN tablet 05/09/20 Amoxicillin/Potassium Clav [Augmentin 875-125 Tablet] 1 ea PO BID #20 tab 05/09/20 Docusate Sodium [Colace] 100 mg PO BID #30 cap 05/09/20 Oxycodone [Oxyir] 5 - 10 mg PO Q4H PRN PRN 5 Days #20 tablet 05/09/20 The following prescriptions were given: Amoxicillin/Potassium Clav [Augmentin 875-125 Tablet] 1 ea PO BID #20 tab Transmission Status: Pending to [facility] Docusate Sodium [Colace] 100 mg PO BID #30 cap Transmission Status: Pending to [facility] Oxycodone [Oxyir] 5 - 10 mg PO Q4H PRN PRN 5 Days #20 tablet PRN Reason: Pain Score 4-10/10 Transmission Status: Sent to [facility] Primary Care Physician: Care Physician,No Primary [Primary Care Provider] - Test Results: Test results from this visit will be discussed in further detail at your follow-up appointment, if applicable. Please Follow Up With: Wilner Li MD When: Please call to schedule 2 week follow up appointment. [phone]
--- NOTE | 2020-05-09 07:39 | PN.SURG_ITS ---
Patient Problems: Active and Suspected Problems Perirectal abscess (Acute) Intraabdominal mass (Acute) Subjective: Patient is doing well this morning - Physical Exam Vitals/I&O's: Vital Signs Temp Pulse Resp BP Pulse Ox 98.7 F 52 L 18 137/81 H 98 05/09/20 02:52 05/09/20 02:52 05/09/20 02:52 05/09/20 02:52 05/09/20 02:52 Oxygen Delivery Method Room Air Weight: 213 lb 2.992 oz Body Mass Index (BMI) 28.9 Intake and Output for Last 24 Hours 05/07/20 05/08/20 05/09/20 23:59 23:59 23:59 Intake Total 1050 / 1770 2979.66 / 2979.66 500 / 500 Output Total 300 / 300 Balance 1050 / 1770 2679.66 / 2679.66 500 / 500 General: Alert, Oriented x3 Neck: No JVD Lungs: Clear to auscultation, Normal air movement Cardiovascular: Regular rate, Regular Rhythm Abdomen: Bowel Sounds Present, Soft, Non Tender, Non-Distended Microbiology Past 72 Hours 05/08/20 Unknown Perianal Abcess Gram Stain - Final Laboratory Results 05/09/20 05:50: WBC 13.4 H, RBC 4.10 L, Hgb 12.5 L, Hct 37.6 L, MCV 91.7, MCH 30.5, MCHC 33.2, RDW Std Deviation 46.4 H, RDW Coeff of Xiao 13.6, Plt Count 281, MPV 9.8, Immature Gran % (Auto) 0.700, Neut % (Auto) 82.1 H, Lymph % (Auto) 8.3 L, [place] % (Auto) 8.0, Eos % (Auto) 0.7, Baso % (Auto) 0.2, Absolute Neuts (auto) 11.0 H, Absolute Lymphs (auto) 1.11, Nucleated RBC % 0 05/09/20 05:50: Sodium 136, Potassium 3.5, Chloride 105, Carbon Dioxide 24.0, Anion Gap 7, BUN 10, Creatinine 1.02, Estim Creat Clear Calc 90.87, Est GFR (MDRD) Af Amer 98, Est GFR (MDRD) Non-Af 81, BUN/Creatinine Ratio 9.8 L, Glucose 123 H, Calcium 8.5 Current Medications Acetaminophen (Tylenol) 650 mg PO Q4H PRN PRN PRN Reason: Pain Score 1-10/10/FEVER Last Admin: 05/08/20 20:15 Dose: 650 mg Documented by: Sodium Chloride () 1,000 mls @ 40 mls/hr IV .Q25H CHARLEEN Last Admin: 05/08/20 20:17 Dose: 40 mls/hr Documented by: Piperacillin Sod/Tazobactam (Sod 3.375 gm/ Sodium Chloride) 50 mls @ 12.5 mls/hr IV Q8 CHARLEEN Last Admin: 05/09/20 05:09 Dose: 12.5 mls/hr Documented by: Sodium Chloride () 250 mls @ 15 mls/hr IV .[id number] PRN PRN Reason: Saline Flush Last Infusion: 05/08/20 03:45 Dose: 0 mls/hr Documented by: Sodium Chloride () 250 mls @ 15 mls/hr IV .[id number] PRN PRN Reason: Additional IVPB Infusion Ketorolac Tromethamine (Toradol (Bkc)) 15 mg IV Q8H PRN PRN PRN Reason: pain 1-10/10 Stop: 05/13/20 06:57 Last Admin: 05/08/20 23:28 Dose: 15 mg Documented by: Morphine Sulfate () 2 - 4 mg IV Q2H PRN PRN PRN Reason: Pain Score 4-10/10 Last Admin: 05/08/20 06:58 Dose: 2 mg Documented by: Morphine Sulfate () 2 - 4 mg IV Q2H PRN PRN PRN Reason: Pain Score 4-10/10 Ondansetron HCl (Zofran) 4 mg IV Q6H PRN PRN PRN Reason: NAUSEA Oxycodone HCl (Oxyir) 5 - 10 mg PO Q4H PRN PRN PRN Reason: Pain Score 4-10/10 Last Admin: 05/09/20 05:09 Dose: 10 mg Documented by: Sodium Chloride () 10 - 40 ml IV UD PRN PRN Reason: SALINE FLUSH Last Admin: 05/09/20 03:07 Dose: 10 ml Documented by: Medical Necessity - Tobacco Use Smoking Status: Current every day smoker Tobacco Use: Cigarettes Assessment/Plan All Active Problems Perirectal abscess (Acute) Intraabdominal mass (Acute) 54-year-old male with perirectal abscess 1. Patient's packing was removed today and he reports he is doing well. Pain is well controlled. I advised sitz baths and stool softeners. I will discharge him home on oral antibiotics. Follow-up in 1 week unless things worsen he should follow-up sooner. Wilner Li MD Pager: [facility] [address] [place] [address] [address] [place] [address] Office:
[2020-05-09 09:42] VITALS: BP 135/71; PULSE 57; RESP 16; TEMP 37.1; O2SAT 100
--- NOTE | 2020-05-09 09:46 | CASEMGMT ---
Social Work Note SW reviewed chart. PFS was able to speak with pt today. 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 HE DOESN'T KNOW EXACTLY WHEN HE WENT TO PHYSICS PROFESSOR WHEN I ASKED HIM. HE IS NOT DOESN'T HAVE ANY BIO MINORS. EXPLD ASSISTANCE AND WHAT IS NEEDED MLD HCAP, [employer] JOSHUA, RQSTED ,,03/2020 BANK STMT AND FOR PT TO APPLY FOR BHARGAV ALSO PROVIDED PH# FOR PT TO APPLY FOR BHARGAV. BATSHEVA attempted to meet with pt. Pt currently unavailable, pt is in the bathroom. SW provided pt with medicaid application, Dagmar Jose Enriqueman and Prescription Home resources and placed on pt's table. Juliann Mclaughlin GUARD ENTRANCE REGISTRAR, TOBACCO PREVENTION HEALTH EDUCATOR
--- NOTE | 2020-05-09 10:22 | PHA.DC.MC ---
Pharmacy Service has performed discharge medication reconciliation and counseling for this patient. 1. ACETAMINOPHEN 650MG PO Q4H PRN PAIN 1-10 OR FEVER 2. AMOXICILLIN/CLAVULANATE 875/125MG PO BID X 10 DAYS 3. DOCUSATE 100MG PO BID 4. OXYCODONE 5-10MG PO Q4H PRN PAIN 4-10/10 X 7 DAYS The patient's discharge medication list was reviewed for discrepancies and discrepancies were resolved. Home Medications Acetaminophen [Tylenol Tablet] 650 mg PO Q4H PRN PRN tab 05/09/20 Amoxicillin/Potassium Clav [Augmentin 875-125 Tablet] 1 ea PO BID #20 tab 05/09/20 Docusate Sodium [Colace] 100 mg PO BID #30 cap 05/09/20 Oxycodone [Oxyir] 5 - 10 mg PO Q4H PRN PRN 5 Days #20 tab 05/09/20 The patient was counseled on the following discharge medications and changes in medications for homegoing were reviewed. The Reason for Use, instructions for use, and potential side effects were reviewed for all new medications. The patient's questions regarding all of their medications were answered. The patient was able to verbally demonstrate an understanding of their discharge medications.
--- NOTE | 2020-05-10 09:15 | CASEMGMT ---
Social Work Discharge Follow up Phone Call: Discharge Date: 05/09/20 Call Date: 05/10/20 Call Time: 9:15 Reason for Follow Up Call: Follow up regarding financial assistance. Pt was given Medicaid Chente to complete during stay. Summary of Call: VM left to call this sheet writer back. Interventions: If patient returns call, will address follow up questions. IRLANDA Reyes
== END 2020-05-09 10:03 | disposition home or self-care (01) | DRG 346 ==
LOC: ED 20:17 → MS3 21:00
PROVIDERS: Admitting Provider Surgery; Emergency Provider Emergency Medicine; Referring Provider Surgery; Visit Provider Surgery
PROC: 0D9P7ZZ Drainage of Rectum, Via Natural or Artificial Opening (ICD-10-PCS; principal; 2020-05-08 08:45)
DX: K61.1 Rectal abscess (principal); R19.01 Right upper quadrant abdominal swelling, mass and lump; F17.210 Nicotine dependence, cigarettes, uncomplicated
CPT/HCPCS: 36415; 74177; 80048; 81001; 85025; 87070; 87075; 87076; 87077; 87186; 87205; 87635; 99251; 99284; 99406; G2023; J7030; J7050; Q9967; A4216; G0463; J2405; U0003

== ENCOUNTER 2020-05-12 10:33 | Inpatient (IN) | payer SELFPAY ==
[2020-05-08 07:34] VITALS: BMI 28.9
[2020-05-12] VITALS (17 sets, daily range): BP systolic 94–165; BP diastolic 55–87; PULSE 57–93; RESP 15–24; TEMP 36.3–38; O2SAT 91–99; BMI 28.9; BMI 30.1
--- NOTE | 2020-05-12 10:44 | CT_ITS ---
STUDY: CT PELVIS WITH CONTRAST REASON FOR EXAM: Male, 54 years old. INCREASED SWELLING NEAR ANITRA RECTAL ABSCESS.RIGHT SIDE WORSE RADIATION DOSAGE (If Supplied By Facility): CTDIvol = ( 28.21 ) mGy, DLP = ( 1085.03 ) mGycm TECHNIQUE: Transaxial imaging of the pelvis was performed without oral contrast. IV 100mL Isovue-300 was administered intravenously. Multiplanar coronal and sagittal images were reformatted. Individualized dose optimization techniques were used for this CT. COMPARISON: 05/07/2020 FINDINGS: When compared to the previous study, there has been a slight increase in size of a previously described saddle bag shaped fluid collection surrounding the rectum from the right left and posteriorly. The left side collection measured 4.5 cm, now measures 6.5 cm. The right side collection measured 4.18 cm and now measures approximately 4.5 cm. Process remains below the levator ani muscle and there has been an increase in the amount of perirectal inflammatory changes and in the subcutaneous fat of the gluteal region particularly on the left side. There is also been an increase in the amount of air within the left collection and there are couple of bubbles now seen in the right collection. There is also now a bubble of subcutaneous emphysema noted on axial image 64. Findings are again consistent with a perirectal abscess which has worsened since the previous study. Normal urinary bladder. Normal visualized small intestine. Normal visualized colon. There is no pelvic fluid. Normal visualized pelvic arteries. There are multiple bilateral borderline enlarged inguinal lymph nodes. There are diffuse degenerative changes of the visualized lumbar spine. CT/Pelvis WITH IV Contrast IMPRESSION: Previous seen noted saddle bag shaped perirectal abscess has worsened since the previous study. It is increased in size both right and left of the rectum, and there has been an increase in the induration of the subcutaneous fat particularly in the left gluteal region compared to the previous study. There is been increase of air within the left collection, development of air within the right collection and a bubble of subcutaneous emphysema is noted in the induration of the subcutaneous fat in the left gluteal region. Increase in size and number of multiple bilateral inguinal lymph nodes Electronically Signed: Jeremiah Smith MD at 11:44 EDT , Service support ,
--- NOTE | 2020-05-12 10:46 | ED.DCSUM_ITS ---
History of Present Illness Chief Complaint: Abscess Informant: Patient Narrative: Patient had a recent perirectal abscess with drainage in the OR, he was doing well at home he developed worsening pain recently, he was seen by surgery and sent to the emergency department for further work-up. He denies any fever or chills he has no myalgias he is complaining mostly of localized left buttock pain as well as perirectal pain. No abdominal pain no nausea or vomiting no diarrhea. Past Medical History - Allergies and Home Meds Allergies/Adverse Reactions: Allergies No Known Allergies Allergy (Verified 05/12/20 10:34) Primary Care Physician: Care Physician,No Primary [Primary Care Provider] - Past Medical History: None Surgical History: no surgical history Smoking Status: Current every day smoker - Family History Maternal Family History: Reports: No pertinent history Review of Systems All systems negative except as indicated General: Denies: Fever Cardiovascular: Denies: Chest pain Respiratory: Denies: Dyspnea Gastrointestinal: Denies: Abdominal pain, Nausea, Vomiting Genitourinary: Reports: - - Buttock and perirectal pain. Denies: Dysuria Musculoskeletal: Denies: Myalgias, Extremity Pain Skin: Reports: Abscess, Wounds Neurological: Denies: Weakness, Parasthesia Hematologic: Denies: Easy bruising, Easy bleeding Physical Exam Vital Signs/Narrative: Vital Signs Temp Pulse Resp BP Pulse Ox 05/12/20 10:35 97.4 F L 73 16 156/80 H 98 General: Well nourished, Well developed, - - He is laying on his abdomen he appears in slight distress Head: Normocephalic, Atraumatic Eyes: Perrl ENT: Moist mucous membranes, No rhinorrhea Cardiovascular: Regular rate, Regular rhythm Respiratory: No distress, CTA bilaterally Abdomen: Soft, Nontender Rectal: - - There is some perirectal tenderness, there is a an indurated lesion on his left buttock extending about 10 cm, no cellulitis that is seen, this is somewhat deep I cannot appreciate fluctuance at this time. Back: Nontender, Normal Inspection Extremities: Nontender, No edema Skin: Normal color, - - No cellulitis seen. Neurological: Normal Strength, Normal Sensation Diagnostic/Tx/Re-eval - Medical Decision Making Patient was discussed with surgery. He is found to have an abscess that will need to be drained antibiotics were started analgesia was given and patient will go to the OR. Patient is stable at this time. ED Disposition - Plan for ED Patient: Disposition: Acute Care Hospital [facility] Diagnosis: Perianal abscess
[2020-05-12] MEDS: Ondansetron 4 MG/2 ML Vial IV (10:58)
[2020-05-12] MEDS: HYDROmorphone 1 MG/ML Syringe IV (10:58)
[2020-05-12 11:14] LABS: Absolute Lymphocyte Count 0.79 X10^3/uL (0.83-4.51); Absolute Neutrophil Count 19.9 X10^3/uL (2.0-7.7); Basophil# 0.05 X10^3/uL; Basophil% 0.2 % (0-1); Eosinophil# 0.06 X10^3/uL; Eosinophils% 0.3 % (0-5); Hematocrit 39.3 % (40-54); Hemoglobin 13.3 g/dL (13.0-16.5); Lymphocyte # 0.79 X10^3/ul (4.0); Lymphocyte % 3.5 % (19-41); Mean Corp Hgb Conc 33.8 g/dL (32-36); Mean Corpuscular Hgb 30.9 pg (27.0-32.0); Mean Corpuscular Volume 91.2 fL (80-94); Mean Platelet Vol. 9.6 fl (6.2-12.0); Monocyte% 6.2 % (0-10); NRBC Flagged by Analyzer 0 % (0-5); Neutrophil # 19.86 X10^3/uL (2.7-7.7); Neutrophil % 88.7 % (47-70); Platelet Count 378 K/mm3 (150-450); RBC Distribution Width CV 13.4 % (11.6-14.6); RBC Distribution Width SD 45.6 fl (35.1-43.9); Red Blood Count 4.31 M/mm3 (4.6-6.2); White Blood Count 22.4 K/mm3 (4.4-11.0)
[2020-05-12 11:24] LABS: ALB/GLOB Ratio 0.5 RATIO (0.9-2.4); AST(SGOT) 19 U/L (15-37); Alanine Aminotransfer ALT/SGPT 24 U/L (16-61); Albumin, Serum 2.5 g/dL (3.2-5.0); Alkaline Phosphatase 118 U/L (45-117); Anion Gap 5 (5-15); BUN 10 mg/dL (7-18); BUN/Creat Ratio 9.3 RATIO (10-20); Calcium,Total 9.5 mg/dL (8.5-10.1); Chloride 104 mmol/L (98-107); Creatinine, Serum 1.07 mg/dL (0.70-1.30); EST Glomerular Filtration Rate 76 mL/min (>60); Est Glom Filt Rate - Afr Amer 92 mL/min (>60); Estimated Creatinine Clearance 86.63 ml/min; Globulin 5.5 g/dL (2.2-4.2); Glucose 124 mg/dL (74-106); Potassium 3.8 mmol/L (3.5-5.1); Sodium Level 138 mmol/L (136-145)
--- NOTE | 2020-05-12 11:40 | NURSING ---
MED SURG THEN SURGERY CALABRRETTA PERIANAL ABSCESS
--- NOTE | 2020-05-12 11:59 | ED.RN ---
EDUCATED ON VISITOR POLICY. DECLINES SUPPORT PERSON.
--- NOTE | 2020-05-12 12:17 | HP.PCM_ITS ---
Problem List (1) Perirectal abscess Status: Acute History of Present Illness Date of Admission: 05/12/20 The patient is a 54 year old M who had perirectal abscess drained on Friday of this week. He was doing well the morning after surgery with no pain. He went home he said he was doing well until last night when he started having pain recurring again. He reports extreme pain in the rectal area today. Past Medical History Allergies No Known Allergies Allergy (Verified 05/12/20 10:34) Home Medications: Ambulatory Orders Medication Instructions Recorded Acetaminophen [Tylenol Tablet] 650 mg PO Q4H PRN PRN tab 05/09/20 Amoxicillin/Potassium Clav 1 ea PO BID #20 tab 05/09/20 [Augmentin 875-125 Tablet] Docusate Sodium [Colace] 100 mg PO BID #30 cap 05/09/20 Surgical History: no surgical history Smoking Status: Current every day smoker - *Family History Maternal History Items: No pertinent history Review of Systems Constitutional: Denies: Anorexia, Fever Eyes: Denies: Blurred vision HEENT: Denies: Difficulty Swallowing Cardiovascular: Denies: Chest Pain Respiratory: Denies: Cough, Shortness of Breath Gastrointestinal: Reports: - - Buttock pain especially on the left Genitourinary: Denies: Dysuria Musculoskeletal: Denies: Joint Tenderness Skin: Denies: Jaundice VTE Information - Inpt Only VTE Present on Admission: No VTE Mechan Device Prophylaxis: SCD's Patient Problems: Active and Suspected Problems Perianal abscess (Acute) - Physical Exam Vitals/I&O's: Vital Signs Temp Pulse Resp BP Pulse Ox 98.1 F 57 L 18 148/87 H 99 05/12/20 11:55 05/12/20 11:55 05/12/20 11:55 05/12/20 11:55 05/12/20 11:55 Oxygen Delivery Method Room Air Weight: 213 lb 6.519 oz Body Mass Index (BMI) 28.9 Intake and Output for Last 24 Hours 05/10/20 05/11/20 05/12/20 23:59 23:59 23:59 Intake Total 500 / 500 Balance 500 / 500 General: Alert, Oriented x3 Neck: No JVD Lungs: Normal air movement Cardiovascular: Regular rate, Regular Rhythm Abdomen: Soft, Non Tender, Non-Distended Laboratory Results 05/12/20 11:00: WBC 22.4 H, RBC 4.31 L, Hgb 13.3, Hct 39.3 L, MCV 91.2, MCH 30. 9, MCHC 33.8, RDW Std Deviation 45.6 H, RDW Coeff of Xiao 13.4, Plt Count 378, MPV 9.6, Immature Gran % (Auto) 1.100 H, Neut % (Auto) 88.7 H, Lymph % (Auto) 3.5 L, [place] % (Auto) 6.2, Eos % (Auto) 0.3, Baso % (Auto) 0.2, Absolute Neuts (auto) 19.9 H, Absolute Lymphs (auto) 0.79 L, Nucleated RBC % 0 05/12/20 11:00: Sodium 138, Potassium 3.8, Chloride 104, Carbon Dioxide 29.0, Anion Gap 5, BUN 10, Creatinine 1.07, Estim Creat Clear Calc 86.63, Est GFR (MDRD) Af Amer 92, Est GFR (MDRD) Non-Af 76, BUN/Creatinine Ratio 9.3 L, Glucose 124 H, Calcium 9.5, Total Bilirubin 0.80, AST 19, ALT 24, Alkaline Phosphatase 118 H, Total Protein 8.0, Albumin 2.5 L, Globulin 5.5 H, Albumin/Globulin Ratio 0.5 L Current Medications Acetaminophen (Tylenol) 650 mg PO Q4H PRN PRN PRN Reason: Pain or Fever Docusate Sodium (Colace) 100 mg PO BID [facility] Vancomycin HCl 1,500 mg/ (Sodium Chloride) 530 mls @ 250 mls/hr IV X1 ONE Stop: 05/12/20 12:52 Sodium Chloride () 1,000 mls @ 100 mls/hr IV .Q10H [facility] Ketorolac Tromethamine (Toradol (Bkc)) 15 mg IV Q8H PRN PRN PRN Reason: Pain Score 4-10/10 Stop: 05/14/20 12:13 Morphine Sulfate () 2 - 4 mg IV Q2H PRN PRN PRN Reason: Pain Score 4-10/10 Ondansetron HCl (Zofran) 4 mg IV Q6H PRN PRN PRN Reason: NAUSEA Assessment/Plan All Active Problems Perirectal abscess (Acute) Intraabdominal mass (Acute) Perianal abscess (Acute) 54-year-old male with perirectal abscess 1. Patient came into the office today due to pain. He had a very enlarged left buttock region with tenderness and warmth. I sent him to the emergency room for CT scan and labs. Labs reveal elevated white count and CT reveals an enlarged perirectal abscess that appears worse than before drainage. I will take the patient today to the operating room and perform repeat drainage with placement of drain of this abscess. I discussed this with the patient I discussed the risks including not limited to bleeding, infection, injury to rectum. The patient understands the risks and wants to proceed. Patient will be admitted postoperatively to the floor and kept on IV antibiotics. Wilner Li MD Pager: [facility] [address] [place] [address] [address] [place] [address] Office:
--- NOTE | 2020-05-12 13:36 | EKG12_ITS ---
Test Reason : PRE OP Blood Pressure : / mmHG Vent. Rate : 094 BPM Atrial Rate : 094 BPM P-R Int : 134 ms QRS Dur : 088 ms QT Int : 334 ms P-R-T Axes : 053 045 269 degrees QTc Int : 417 ms Normal sinus rhythm with sinus arrhythmia ST & T wave abnormality, consider inferolateral ischemia Abnormal ECG No previous ECGs available Confirmed by UVALDO CUADRA ([id number]), international editorial producer ABNER MATHEW ([id number]) on 05/18/2020 12:20:37 PM Referred By: DWAYNE Confirmed By:UVALDO CUADRA
[2020-05-12] MEDS: 0.9% Normal Saline 1,000 ML 100 ML IV (14:08)
--- NOTE | 2020-05-12 14:33 | NURSING ---
pt transported off unit via bed to OR at this time. after surgery, pt will go to ICU room 8. asked pt if he wanted this RN to call any family member and he refused. all belongings with patient.
[2020-05-12 14:50] LABS: Lactic Acid 4.2 mmol/L (0.4-1.9)
--- NOTE | 2020-05-12 14:52 | ED.RN ---
ICU NURSE DAVID AND MS3 NURSE MILTON NOTIFIED PT LACTIC ACID 4.2.
--- NOTE | 2020-05-12 16:11 | PN_ITS ---
Progress Note While awaiting surgery the patient began to have rigors and a low-grade fever. Patient will be placed in the ICU postoperatively to observe for possible sepsis. Lactate was ordered. Blood cultures are pending. Continue Vanco and Zosyn. Consult ICU fitter's assistant. Wilner Li MD Pager: [facility] [address] [place] [address], [address] [place] [address] Office: [facility] Vital Signs/Narrative: Vital Signs Temp Pulse Resp BP Pulse Ox 05/12/20 14:45 100.3 F H 79 16 124/64 H 05/12/20 14:12 100.4 F H 93 24 H 165/83 H 92
--- NOTE | 2020-05-12 16:11 | PCM.PN.BLA ---
Progress Note While awaiting surgery the patient began to have rigors and a low-grade fever. Patient will be placed in the ICU postoperatively to observe for possible sepsis. Lactate was ordered. Blood cultures are pending. Continue Vanco and Zosyn. Consult ICU swimming coach. Wilner Li MD Pager: [facility] [address] [place] [address], [address] [place] [address] Office: [facility] Vital Signs/Narrative: Vital Signs Temp Pulse Resp BP Pulse Ox 05/12/20 14:45 100.3 F H 79 16 124/64 H 05/12/20 14:12 100.4 F H 93 24 H 165/83 H 92
--- NOTE | 2020-05-12 16:48 | PCM.RX.CS ---
Consult Pharmacy has been consulted to manage selected antiobiotic: Vancomycin Type of Consult: New start Suspected Infection: Sepsis Labs: Sodium 138 mmol/L (136-145) 05/12/20 11:00 Potassium 3.8 mmol/L (3.5-5.1) 05/12/20 11:00 Chloride 104 mmol/L (98-107) 05/12/20 11:00 Carbon Dioxide 29.0 mmol/L (21.0-32.0) 05/12/20 11:00 Anion Gap 5 (5-15) 05/12/20 11:00 BUN 10 mg/dL (7-18) 05/12/20 11:00 Creatinine 1.07 mg/dL (0.70-1.30) 05/12/20 11:00 Est GFR (MDRD) Af Amer 92 mL/min (>60) 05/12/20 11:00 Est GFR (MDRD) Non-Af 76 mL/min (>60) 05/12/20 11:00 BUN/Creatinine Ratio 9.3 RATIO (10-20) L 05/12/20 11:00 Glucose 124 mg/dL (74-106) H 05/12/20 11:00 Goal Trough: 15-20 mcg/mL Pharmacy Plan for Drug Dosing: NEW START IV VANCOMYCIN Consulting Physician: Jen Indication: Sepsis/ Perirectal abscess Goal Trough: 15-20 SrCr: 1.07 (05/12) CrCl: 87 mL/min Comments: Given 1st dose of vancomycin 1500mg in ED 05/12 @1232. Since this is less than the scheduled dosing, will start the scheduled dosing ~1hr sooner. Vancomcyin Dose: 1750mg IV Q12hrs to start 05/12 @2300 Pending Level: 05/13/20 @2230 (prior to 4th total dose per protocol) Pharmacy Service will continue to monitor and adjust dosing as required.
[2020-05-12] MEDS: Bupivacaine Mpf 0.5% 30 ML VIAL (17:13)
[2020-05-12] MEDS: Lubricating Jelly 60 GM Tube 30 GM TOPICAL (17:54)
--- NOTE | 2020-05-12 18:09 | PCM.OPRPT ---
Problem List (1) Perirectal abscess Status: Acute Report of Operation Date of Procedure: 05/12/20 Pre-Operative Diagnosis: 1. Sepsis. 2. Perirectal ischio fossa abscess Post-Operative Diagnosis: Same Surgery/Procedure Performed:: Incision and drainage of perirectal abscess. Placement of seton suture in perirectal fistula Description of Procedure: Patient was brought to the operating room and general anesthesia was used. Patient was placed in a prone jackknife position and the buttocks were taped open and the perineal region was prepped and draped in usual sterile fashion. The prior incision was elongated using electrocautery and hemostats were used to enter the abscess cavity. 150 cc of purulent fluid was suctioned from the abscess cavity. A pinky finger was used to palpate the entire abscess cavity make sure that all loculations were broken down and that it was adequately drained. The abscess cavity was irrigated and suctioned dry. The posterior anorectal fistula was located inside of the rectum and a hemostat was placed through this and a seton suture made of vessel loop was placed through the fistula and through the incision and tied using a 3-0 silk. A 20 Vietnamese mushroom tip catheter was then placed into the deep left side of the abscess cavity and sutured in place to the skin using 3-0 silk suture. Next the skin and perirectal area were anesthetized with Marcaine and ABDs and mesh panties were placed over the patient. The patient was rolled back onto his bed and awoken in stable condition and brought to PACU in stable condition. The patient was showing signs of sepsis before the procedure so he will be placed in the ICU after surgery for close monitoring. Grafts/Implants Used: 20 Vietnamese mushroom tip catheter, vessel loop for seton suture - Admit VTE Documentation VTE Mechan Device Prophylaxis: SCD's
[2020-05-12 18:19] LABS: Reflex Lactate? Y
--- NOTE | 2020-05-12 20:00 | EKG12_ITS ---
Test Reason : Blood Pressure : / mmHG Vent. Rate : 069 BPM Atrial Rate : 069 BPM P-R Int : 140 ms QRS Dur : 092 ms QT Int : 404 ms P-R-T Axes : 046 034 -70 degrees QTc Int : 432 ms Normal sinus rhythm T wave abnormality, consider inferolateral ischemia Abnormal ECG When compared with ECG of 12-MAY-2020 14:04, MANUAL COMPARISON REQUIRED, DATA IS UNCONFIRMED Confirmed by UVALDO CUADRA ([id number]), manager editorial ABNER MATHEW ([id number]) on 05/18/2020 12:17:48 PM Referred By: Confirmed By:UVALDO CUADRA
--- NOTE | 2020-05-12 20:05 | NURSING ---
counted $340 dollars mehta with patient, placed in wallet, and wallet was then locked in ICU8 [facility] drawer.
[2020-05-12 20:08] LABS: Lactic Acid 1.5 mmol/L (0.4-1.9)
[2020-05-12] MEDS: Docusate Sodium 100 MG Capsule PO (21:16)
[2020-05-12] MEDS: Morphine 2 MG/ML Syringe IV (22:40)
[2020-05-13] VITALS (13 sets, daily range): BP systolic 100–149; BP diastolic 47–87; PULSE 57–71; RESP 15–22; TEMP 36.7–37.8; O2SAT 97–100
[2020-05-13] MEDS: 0.9% Normal Saline 1,000 ML 100 ML IV (00:29)
[2020-05-13] MEDS: Morphine 2 MG/ML Syringe IV ×2 (05:35→12:29)
[2020-05-13 06:58] LABS: Absolute Neutrophil Count 18.5 X10^3/uL (2.0-7.7); Basophil# 0.05 X10^3/uL; Basophil% 0.2 % (0-1); Eosinophil# 0.16 X10^3/uL; Eosinophils% 0.8 % (0-5); Hematocrit 34.1 % (40-54); Hemoglobin 11.6 g/dL (13.0-16.5); Lymphocyte % 3.9 % (19-41); Mean Corpuscular Hgb 31.4 pg (27.0-32.0); Mean Corpuscular Volume 92.2 fL (80-94); Mean Platelet Vol. 10.1 fl (6.2-12.0); Monocyte% 4.8 % (0-10); NRBC Flagged by Analyzer 0 % (0-5); Neutrophil # 18.47 X10^3/uL (2.7-7.7); Neutrophil % 89.1 % (47-70); Platelet Count 320 K/mm3 (150-450); RBC Distribution Width CV 13.5 % (11.6-14.6); RBC Distribution Width SD 46.4 fl (35.1-43.9); White Blood Count 20.7 K/mm3 (4.4-11.0)
[2020-05-13 07:25] LABS: Anion Gap 4 (5-15); BUN 9 mg/dL (7-18); Calcium,Total 8.8 mg/dL (8.5-10.1); Chloride 108 mmol/L (98-107); EST Glomerular Filtration Rate 83 mL/min (>60); Est Glom Filt Rate - Afr Amer 100 mL/min (>60); Estimated Creatinine Clearance 92.69 ml/min; Glucose 110 mg/dL (74-106); Potassium 3.8 mmol/L (3.5-5.1); Sodium Level 138 mmol/L (136-145)
--- NOTE | 2020-05-13 08:11 | PCM.CON.CC ---
Problem List (1) Perirectal abscess Status: Acute (2) Intraabdominal mass Status: Acute (3) Perianal abscess Status: Acute Reason for Consult Date of Consultation: 05/13/20 Reason for Consultation: Severe sepsis History of Present Illness: The patient is a 54 year old M, with past medical history listed below, who presented to [facility] on 05/12/2020 secondary to worsening pain of a perirectal abscess. Patient reportedly had gone to the ER complaining of worsening in the area of the previous perirectal abscess. Patient had been seen by surgery earlier in the week and had this drained. Patient stated it was localized to the left buttock and perirectal area. No abdominal pain, nausea, vomiting or diarrhea were reported on presentation. Patient had denied any fever, chills or myalgias to ER staff. Patient was afebrile in the ER and saturating well on room air. Patient was noted to have a 10 cm indurated lesion of the left buttock. Surgery was consulted and patient was placed on antibiotics and admitted to the floor. While on the floor, patient developed hypotension, tachycardia and rigers. Patient was subsequently taken to the OR for debridement, irrigation and was monitored in the intensive care unit with a drain in place. This morning, patient reports significant improvement in overall condition. Patient states pain is very well controlled. Blood pressures have been stable, but patient did spike a fever overnight. Patient had reported mild chest pain that led to an EKG. This was unremarkable. Troponins were cycled and notes were also unremarkable. Patient states he feels well enough to go home this morning. Review of systems otherwise negative from a constitutional, HEENT, respiratory, cardiovascular, GI, genitourinary, musculoskeletal, skin, neurologic, psychiatric and hematologic system unless stated above. Past Medical History Allergies No Known Allergies Allergy (Verified 05/12/20 10:34) Home Medications: Ambulatory Orders Medication Instructions Recorded Acetaminophen [Tylenol Tablet] 650 mg PO Q4H PRN PRN tab 05/09/20 Amoxicillin/Potassium Clav 1 ea PO BID #20 tab 05/09/20 [Augmentin 875-125 Tablet] Docusate Sodium [Colace] 100 mg PO BID #30 cap 05/09/20 Surgical History: no surgical history Smoking Status: Current every day smoker - *Family History Maternal History Items: No pertinent history Review of Systems Comment: See HPI Patient Problems: Active and Suspected Problems Perianal abscess (Acute) Objective: CT of the abdomen was reviewed and abscess was noted. - Physical Exam Vitals/I&O's: Vital Signs Temp Pulse Resp BP Pulse Ox 37.2 C 57 L 15 125/82 H 97 05/13/20 00:00 05/13/20 06:00 05/13/20 06:00 05/13/20 06:00 05/13/20 06:00 Oxygen Flow Rate (L/min) 2 Oxygen Delivery Method Room Air Weight: 100.3 kg Body Mass Index (BMI) 30.1 Intake and Output for Last 24 Hours 05/11/20 05/12/20 05/13/20 23:59 23:59 23:59 Intake Total 1590 / 1590 1878.67 / 1878.67 Output Total 675 / 675 375 / 375 Balance 915 / 915 1503.67 / 1503.67 General: Alert, Oriented x3, Cooperative, No apparent distress, Well developed, Well nourished, - - No conversational dyspnea. HEENT: Atraumatic, PERRLA, EOMI, Normocephalic, - - No scleral icterus or injection noted Oral: Moist Mucosa, No Gingival or Mucosal Lesions/ Ulcerations Neck: Supple, No JVD, No Nodes, Trachea Midline Lungs: Clear to auscultation, Normal air movement, No rhonchi, No wheeze, No rales Cardiovascular: Regular rate, Regular Rhythm, Normal S1, Normal S2, No murmurs, No rub noted, No Gallop Abdomen: Bowel Sounds Present, Soft, Non Tender, Non-Distended, Obese, - - Drain is clean, dry and intact Extremities: No clubbing, No cyanosis, No edema Skin: No rashes, Incision - Clean, dry and intact Musculoskeletal: No Tenderness to Palpation of Joints or Extremities Lymphatic: No Cervical, Supraclavicular, or Inguinal Adenopathy Neurological: Cranial nerves II-XII grossly intact, Neuro grossly intact, Motor Exam 5/5 strength throughout Psych/Mental Status: Alert and oriented to time, place, person, mood and affect Laboratory Results 05/12/20 11:00: WBC 22.4 H, RBC 4.31 L, Hgb 13.3, Hct 39.3 L, MCV 91.2, MCH 30.9, MCHC 33.8, RDW Std Deviation 45.6 H, RDW Coeff of Xiao 13.4, Plt Count 378, MPV 9.6, Immature Gran % (Auto) 1.100 H, Neut % (Auto) 88.7 H, Lymph % (Auto) 3.5 L, [place] % (Auto) 6.2, Eos % (Auto) 0.3, Baso % (Auto) 0.2, Absolute Neuts (auto) 19.9 H, Absolute Lymphs (auto) 0.79 L, Nucleated RBC % 0 05/12/20 11:00: Sodium 138, Potassium 3.8, Chloride 104, Carbon Dioxide 29.0, Anion Gap 5, BUN 10, Creatinine 1.07, Estim Creat Clear Calc 86.63, Est GFR (MDRD) Af Amer 92, Est GFR (MDRD) Non-Af 76, BUN/Creatinine Ratio 9.3 L, Glucose 124 H, Calcium 9.5, Total Bilirubin 0.80, AST 19, ALT 24, Alkaline Phosphatase 118 H, Total Protein 8.0, Albumin 2.5 L, Globulin 5.5 H, Albumin/Globulin Ratio 0.5 L 05/12/20 14:12: Lactic Acid 4.2 H* 05/12/20 19:35: Lactic Acid 1.5 05/12/20 19:35: Troponin I 0.099 H 05/12/20 23:00: Troponin I 0.104 H 05/13/20 02:00: Troponin I 0.083 H 05/13/20 06:15: WBC 20.7 H, RBC 3.70 L, Hgb 11.6 L, Hct 34.1 L, MCV 92.2, MCH 31.4, MCHC 34.0, RDW Std Deviation 46.4 H, RDW Coeff of Xiao 13.5, Plt Count 320, MPV 10.1, Immature Gran % (Auto) 1.200 H, Neut % (Auto) 89.1 H, Lymph % (Auto) 3.9 L, [place] % (Auto) 4.8, Eos % (Auto) 0.8, Baso % (Auto) 0.2, Absolute Neuts (auto) 18.5 H, Absolute Lymphs (auto) 0.80 L, Nucleated RBC % 0 06/27/20 06:15: Sodium 138, Potassium 3.8, Chloride 108 H, Carbon Dioxide 26.0, Anion Gap 4 L, BUN 9, Creatinine 1.00, Estim Creat Clear Calc 92.69, Est GFR (MDRD) Af Amer 100, Est GFR (MDRD) Non-Af 83, BUN/Creatinine Ratio 9.0 L, Glucose 110 H, Calcium 8.8 Current Medications Acetaminophen (Tylenol) 650 mg PO Q4H PRN PRN PRN Reason: Pain 1-3 or Fever Docusate Sodium (Colace) 100 mg PO BID [facility] Last Admin: 05/12/20 21:16 Dose: 100 mg Documented by: Sodium Chloride () 250 mls @ 15 mls/hr IV .[id number] PRN PRN Reason: Saline Flush Last Infusion: 05/13/20 06:32 Dose: 0 mls/hr Documented by: Sodium Chloride () 250 mls @ 15 mls/hr IV .[id number] PRN PRN Reason: Additional IVPB Infusion Piperacillin Sod/Tazobactam (Sod 3.375 gm/ Sodium Chloride) 50 mls @ 12.5 mls/hr IV Q8 [facility] Last Admin: 05/13/20 05:36 Dose: 12.5 mls/hr Documented by: Vancomycin HCl 1,750 mg/ (Sodium Chloride) 535 mls @ 250 mls/hr IV Q12H [facility] Last Infusion: 05/13/20 02:35 Dose: Infused Documented by: Vancomycin IV Pharmacy to Dose (1 ea/ Sodium Chloride) 500 mls @ 250 mls/hr IV PRN PRN; Protocol PRN Reason: Rx to Dose Ketorolac Tromethamine (Toradol (Bkc)) 15 mg IV Q8H PRN PRN PRN Reason: Pain Score 4-10/10 Stop: 05/14/20 12:13 Morphine Sulfate () 2 - 4 mg IV Q2H PRN PRN PRN Reason: Pain Score 4-10/10 Last Admin: 05/13/20 05:35 Dose: 2 mg Documented by: Ondansetron HCl (Zofran) 4 mg IV Q6H PRN PRN PRN Reason: NAUSEA Sodium Chloride () 10 - 40 ml IV UD PRN PRN Reason: SALINE FLUSH Clinical Impression(s) from Imaging Studies Pelvis CT 05/12/20 10:44 IMPRESSION: Previous seen noted saddle bag shaped perirectal abscess has worsened since the previous study. It is increased in size both right and left of the rectum, and there has been an increase in the induration of the subcutaneous fat particularly in the left gluteal region compared to the previous study. There is been increase of air within the left collection, development of air within the right collection and a bubble of subcutaneous emphysema is noted in the induration of the subcutaneous fat in the left gluteal region. Increase in size and number of multiple bilateral inguinal lymph nodes Electronically Signed: Jeremiah Smith MD at 11:44 EDT , Service support , Assessment/Plan Active and Suspected Problems Perianal abscess (Acute) RECOMMENDATIONS: 1. Drain management per surgery 2. Continue with systemic antibiotics, could consider transition to ceftriaxone 3. Increase activity as tolerated 4. Okay to leave the intensive care unit from my perspective IMPRESSIONS: 1. Severe sepsis secondary to perirectal abscess secondary to polymicrobial infection Previous sensitivities were reviewed. Ceftriaxone may be sufficient to cover all previous organisms. Patient currently on broad-spectrum antibiotics. Patient responding well to therapy. Will defer drain management to surgery. Okay to leave the intensive care unit from my perspective. Patient likely with transient bacteremia leading to acute decompensation on the floor. Could consider checking orthostatics before discharge home. Inpatient E&M: 60063 Init Hosp L2
[2020-05-13] MEDS: Docusate Sodium 100 MG Capsule PO ×2 (08:22→22:09)
[2020-05-13] MEDS: Ketorolac 15 MG/ML Vial IV ×3 (08:22→23:20)
--- NOTE | 2020-05-13 08:57 | PN.SURG_ITS ---
Patient Problems: Active and Suspected Problems Perianal abscess (Acute) Subjective: Pain is much improved today. Patient would actually like to be discharged home. Objective: Significant amount of discharge coming out of the [place] tube. - Physical Exam Vitals/I&O's: Vital Signs Temp Pulse Resp BP Pulse Ox 98.9 F 57 L 15 125/82 H 97 05/13/20 00:00 05/13/20 06:00 05/13/20 06:00 05/13/20 06:00 05/13/20 06:00 Oxygen Flow Rate (L/min) 2 Oxygen Delivery Method Room Air Weight: 221 lb 1.978 oz Body Mass Index (BMI) 30.1 Intake and Output for Last 24 Hours 05/11/20 05/12/20 05/13/20 23:59 23:59 23:59 Intake Total 1590 / 1590 1878.67 / 1878.67 Output Total 675 / 675 375 / 375 Balance 915 / 915 1503.67 / 1503.67 Laboratory Results 05/12/20 11:00: WBC 22.4 H, RBC 4.31 L, Hgb 13.3, Hct 39.3 L, MCV 91.2, MCH 30.9, MCHC 33.8, RDW Std Deviation 45.6 H, RDW Coeff of Xiao 13.4, Plt Count 378, MPV 9.6, Immature Gran % (Auto) 1.100 H, Neut % (Auto) 88.7 H, Lymph % (Auto) 3.5 L, [place] % (Auto) 6.2, Eos % (Auto) 0.3, Baso % (Auto) 0.2, Absolute Neuts (auto) 19.9 H, Absolute Lymphs (auto) 0.79 L, Nucleated RBC % 0 05/12/20 11:00: Sodium 138, Potassium 3.8, Chloride 104, Carbon Dioxide 29.0, Anion Gap 5, BUN 10, Creatinine 1.07, Estim Creat Clear Calc 86.63, Est GFR (MDRD) Af Amer 92, Est GFR (MDRD) Non-Af 76, BUN/Creatinine Ratio 9.3 L, Glucose 124 H, Calcium 9.5, Total Bilirubin 0.80, AST 19, ALT 24, Alkaline Phosphatase 118 H, Total Protein 8.0, Albumin 2.5 L, Globulin 5.5 H, Albumin/Globulin Ratio 0.5 L 05/12/20 14:12: Lactic Acid 4.2 H* 05/12/20 19:35: Lactic Acid 1.5 05/12/20 19:35: Troponin I 0.099 H 05/12/20 23:00: Troponin I 0.104 H 05/13/20 02:00: Troponin I 0.083 H 05/13/20 06:15: WBC 20.7 H, RBC 3.70 L, Hgb 11.6 L, Hct 34.1 L, MCV 92.2, MCH 31.4, MCHC 34.0, RDW Std Deviation 46.4 H, RDW Coeff of Xiao 13.5, Plt Count 320, MPV 10.1, Immature Gran % (Auto) 1.200 H, Neut % (Auto) 89.1 H, Lymph % (Auto) 3.9 L, [place] % (Auto) 4.8, Eos % (Auto) 0.8, Baso % (Auto) 0.2, Absolute Neuts (auto) 18.5 H, Absolute Lymphs (auto) 0.80 L, Nucleated RBC % 0 05/13/20 06:15: Sodium 138, Potassium 3.8, Chloride 108 H, Carbon Dioxide 26.0, Anion Gap 4 L, BUN 9, Creatinine 1.00, Estim Creat Clear Calc 92.69, Est GFR (MDRD) Af Amer 100, Est GFR (MDRD) Non-Af 83, BUN/Creatinine Ratio 9.0 L, Glucose 110 H, Calcium 8.8 Current Medications Acetaminophen (Tylenol) 650 mg PO Q4H PRN PRN PRN Reason: Pain 1-3 or Fever Docusate Sodium (Colace) 100 mg PO BID [facility] Last Admin: 05/13/20 08:22 Dose: 100 mg Documented by: Sodium Chloride () 250 mls @ 15 mls/hr IV .[id number] PRN PRN Reason: Saline Flush Last Infusion: 05/13/20 06:32 Dose: 0 mls/hr Documented by: Sodium Chloride () 250 mls @ 15 mls/hr IV .[id number] PRN PRN Reason: Additional IVPB Infusion Piperacillin Sod/Tazobactam (Sod 3.375 gm/ Sodium Chloride) 50 mls @ 12.5 mls/hr IV Q8 [facility] Last Admin: 05/13/20 05:36 Dose: 12.5 mls/hr Documented by: Vancomycin HCl 1,750 mg/ (Sodium Chloride) 535 mls @ 250 mls/hr IV Q12H [facility] Last Infusion: 05/13/20 02:35 Dose: Infused Documented by: Vancomycin IV Pharmacy to Dose (1 ea/ Sodium Chloride) 500 mls @ 250 mls/hr IV PRN PRN; Protocol PRN Reason: Rx to Dose Ketorolac Tromethamine (Toradol (Bkc)) 15 mg IV Q8H PRN PRN PRN Reason: Pain Score 4-10/10 Stop: 05/14/20 12:13 Last Admin: 05/13/20 08:22 Dose: 15 mg Documented by: Morphine Sulfate () 2 - 4 mg IV Q2H PRN PRN PRN Reason: Pain Score 4-10/10 Last Admin: 05/13/20 05:35 Dose: 2 mg Documented by: Ondansetron HCl (Zofran) 4 mg IV Q6H PRN PRN PRN Reason: NAUSEA Sodium Chloride () 10 - 40 ml IV UD PRN PRN Reason: SALINE FLUSH Medical Necessity - Tobacco Use Smoking Status: Current every day smoker Assessment/Plan All Active Problems Perirectal abscess (Acute) Intraabdominal mass (Acute) Perianal abscess (Acute) We have had a slight decrease in his white count. He is no longer having any fevers or chills. At this point will send him down to the floor. Get him in the shower. Believe he still needs to have another day or 2 of IV antibiotics. If he is continuing to do well and things have improved most likely will be able to discharge him on oral antibiotics.
[2020-05-13] MEDS: 0.9% Saline Lock 10 ML Syringe IV ×3 (12:20→21:57)
[2020-05-13] MEDS: Acetaminophen 325 MG Tablet 650 MG PO (13:12)
--- NOTE | 2020-05-13 14:35 | CASEMGMT ---
RN CM Note: attempted x 2 to see pt. Was unable to complete RN CM assessment. Jerrica VILLASENORN RN AM
[2020-05-13] MEDS: oxyCODONE 5 MG Tablet PO (18:22)
[2020-05-13 22:59] LABS: Vancomycin, Trough Level 14.8 ug/mL (5.0-15.0)
--- NOTE | 2020-05-13 23:20 | PCM.RX.CS ---
Consult Pharmacy has been consulted to manage selected antiobiotic: Vancomycin Type of Consult: Follow-up Suspected Infection: Skin/Soft tissue Prior Doses of Antibiotics Received/Current Regimen: Medications Vancomycin HCl 1,750 mg/ (Sodium Chloride) 535 mls @ 250 mls/hr IV Q12H [facility] Last Admin: 05/13/20 22:36 Dose: 250 mls/hr Labs: Sodium 138 mmol/L (136-145) 05/13/20 06:15 Potassium 3.8 mmol/L (3.5-5.1) 05/13/20 06:15 Chloride 108 mmol/L (98-107) H 05/13/20 06:15 Carbon Dioxide 26.0 mmol/L (21.0-32.0) 05/13/20 06:15 Anion Gap 4 (5-15) L 05/13/20 06:15 BUN 9 mg/dL (7-18) 05/13/20 06:15 Creatinine 1.00 mg/dL (0.70-1.30) 05/13/20 06:15 Est GFR (MDRD) Af Amer 100 mL/min (>60) 05/13/20 06:15 Est GFR (MDRD) Non-Af 83 mL/min (>60) 05/13/20 06:15 BUN/Creatinine Ratio 9.0 RATIO (10-20) L 05/13/20 06:15 Glucose 110 mg/dL (74-106) H 05/13/20 06:15 Vancomycin Trough 14.8 ug/mL (5.0-15.0) 05/13/20 22:32 Weight used for dosin.3 kg Estimated Creatinine Clearance: 93 Goal Trough: 15-20 mcg/mL Pharmacy Plan for Drug Dosing: Vancomycin trough level was 14.8, just under target range of 15-20. Will continue same dosing schedule, and re-draw trough level in 3 days if pt still receiving. Pharmacy Service will continue to monitor and adjust dosing as required. Follow-Up Labs: Trough Vancomycin Labs to be done on [date and time ordered]: 05/16/20 @1030
[2020-05-14] MEDS: oxyCODONE 5 MG Tablet PO ×3 (02:05→10:51)
[2020-05-14] MEDS: 0.9% Saline Lock 10 ML Syringe IV (02:06)
[2020-05-14 02:24] VITALS: BP 143/86; PULSE 62; RESP 18; TEMP 36.9; O2SAT 100
--- NOTE | 2020-05-14 08:24 | PN_ITS ---
Subjective: Patient transferred out of the intensive care unit yesterday. Patient states he continues to feel well, but states that he has had significant drainage from the abscess. Patient estimates that he has cleaned the area 5-6 times in addition to the nurses. Patient states the pain is well controlled. Patient denies any orthostatic symptoms, nausea or vomiting. General: Alert, Oriented x3, Cooperative, No apparent distress, Well developed, Well nourished, - - No conversational dyspnea. HEENT: Atraumatic, PERRLA, EOMI, Normocephalic, - - No scleral icterus or injection noted Oral: Moist Mucosa, No Gingival or Mucosal Lesions/ Ulcerations Neck: Supple, No JVD, No Nodes, Trachea Midline Lungs: Clear to auscultation, Normal air movement, No rhonchi, No wheeze, No rales Cardiovascular: Regular rate, Regular Rhythm, Normal S1, Normal S2, No murmurs, No rub noted, No Gallop Abdomen: Bowel Sounds Present, Soft, Non Tender, Non-Distended, Obese Extremities: No clubbing, No cyanosis, No edema Skin: - - Drain with purulent output Musculoskeletal: No Tenderness to Palpation of Joints or Extremities Lymphatic: No Cervical, Supraclavicular, or Inguinal Adenopathy Neurological: Cranial nerves II-XII grossly intact, Neuro grossly intact, Motor Exam 5/5 strength throughout Psych/Mental Status: Alert and oriented to time, place, person, mood and affect Vital Signs Temp Pulse Resp BP Pulse Ox 36.9 C 62 18 143/86 H 100 05/14/20 02:24 05/14/20 02:24 05/14/20 02:24 05/14/20 02:24 05/14/20 02:24 Oxygen Flow Rate (L/min) 2 Oxygen Delivery Method Room Air Weight: 99.7 kg Body Mass Index (BMI) 30.1 Intake and Output for Last 24 Hours 05/12/20 05/13/20 05/14/20 23:59 23:59 23:59 Intake Total 1590 / 1590 3347.92 / 3347.92 1535 / 1535 Output Total 675 / 675 375 / 375 Balance 915 / 915 2972.92 / 2972.92 1535 / 1535 Labs (Last 48 Hours) 05/12/20 05/12/20 05/12/20 11:00 11:00 14:12 WBC 22.4 H RBC 4.31 L Hgb 13.3 Hct 39.3 L MCV 91.2 MCH 30.9 MCHC 33.8 RDW Std Deviation 45.6 H RDW Coeff of Xiao 13.4 Plt Count 378 MPV 9.6 Immature Gran % (Auto) 1.100 H Neut % (Auto) 88.7 H Lymph % (Auto) 3.5 L [place] % (Auto) 6.2 Eos % (Auto) 0.3 Baso % (Auto) 0.2 Absolute Neuts (auto) 19.9 H Absolute Lymphs (auto) 0.79 L Nucleated RBC % 0 Sodium 138 Potassium 3.8 Chloride 104 Carbon Dioxide 29.0 Anion Gap 5 BUN 10 Creatinine 1.07 Estim Creat Clear Calc 86.63 Est GFR (MDRD) Af Amer 92 Est GFR (MDRD) Non-Af 76 BUN/Creatinine Ratio 9.3 L Glucose 124 H Lactic Acid 4.2 H* Calcium 9.5 Total Bilirubin 0.80 AST 19 ALT 24 Alkaline Phosphatase 118 H Troponin I Total Protein 8.0 Albumin 2.5 L Globulin 5.5 H Albumin/Globulin Ratio 0.5 L Vancomycin Trough 05/12/20 05/12/20 05/12/20 19:35 19:35 23:00 WBC RBC Hgb Hct MCV MCH MCHC RDW Std Deviation RDW Coeff of Xiao Plt Count MPV Immature Gran % (Auto) Neut % (Auto) Lymph % (Auto) [place] % (Auto) Eos % (Auto) Baso % (Auto) Absolute Neuts (auto) Absolute Lymphs (auto) Nucleated RBC % Sodium Potassium Chloride Carbon Dioxide Anion Gap BUN Creatinine Estim Creat Clear Calc Est GFR (MDRD) Af Amer Est GFR (MDRD) Non-Af BUN/Creatinine Ratio Glucose Lactic Acid 1.5 Calcium Total Bilirubin AST ALT Alkaline Phosphatase Troponin I 0.099 H 0.104 H Total Protein Albumin Globulin Albumin/Globulin Ratio Vancomycin Trough 05/13/20 05/13/20 05/13/20 02:00 06:15 06:15 WBC 20.7 H RBC 3.70 L Hgb 11.6 L Hct 34.1 L MCV 92.2 MCH 31.4 MCHC 34.0 RDW Std Deviation 46.4 H RDW Coeff of Xiao 13.5 Plt Count 320 MPV 10.1 Immature Gran % (Auto) 1.200 H Neut % (Auto) 89.1 H Lymph % (Auto) 3.9 L [place] % (Auto) 4.8 Eos % (Auto) 0.8 Baso % (Auto) 0.2 Absolute Neuts (auto) 18.5 H Absolute Lymphs (auto) 0.80 L Nucleated RBC % 0 Sodium 138 Potassium 3.8 Chloride 108 H Carbon Dioxide 26.0 Anion Gap 4 L BUN 9 Creatinine 1.00 Estim Creat Clear Calc 92.69 Est GFR (MDRD) Af Amer 100 Est GFR (MDRD) Non-Af 83 BUN/Creatinine Ratio 9.0 L Glucose 110 H Lactic Acid Calcium 8.8 Total Bilirubin AST ALT Alkaline Phosphatase Troponin I 0.083 H Total Protein Albumin Globulin Albumin/Globulin Ratio Vancomycin Trough 05/13/20 22:32 WBC RBC Hgb Hct MCV MCH MCHC RDW Std Deviation RDW Coeff of Xiao Plt Count MPV Immature Gran % (Auto) Neut % (Auto) Lymph % (Auto) [place] % (Auto) Eos % (Auto) Baso % (Auto) Absolute Neuts (auto) Absolute Lymphs (auto) Nucleated RBC % Sodium Potassium Chloride Carbon Dioxide Anion Gap BUN Creatinine Estim Creat Clear Calc Est GFR (MDRD) Af Amer Est GFR (MDRD) Non-Af BUN/Creatinine Ratio Glucose Lactic Acid Calcium Total Bilirubin AST ALT Alkaline Phosphatase Troponin I Total Protein Albumin Globulin Albumin/Globulin Ratio Vancomycin Trough 14.8 Medical Necessity - Tobacco Use Smoking Status: Current every day smoker Assessment/Plan All Active Problems Perirectal abscess (Acute) Intraabdominal mass (Acute) Perianal abscess (Acute) RECOMMENDATIONS: 1. Drain management per surgery 2. Continue with systemic antibiotics, could consider transition to ceftriaxone 3. Increase activity as tolerated 4. Hemodynamically stable on room air. Will sign off from a critical care perspective IMPRESSIONS: 1. Severe sepsis secondary to perirectal abscess secondary to polymicrobial infection Previous sensitivities were reviewed. Ceftriaxone may be sufficient to cover all previous organisms. Patient currently on broad-spectrum antibiotics. Patient responding well to therapy. Will defer drain management to surgery, but still having significant output per his report. Hemodynamically stable on room air. Will sign off from a critical care perspective. Please call with any issues. Inpatient E&M: 50353 Subs Hosp L2
[2020-05-14 10:41] VITALS: BP 158/85; PULSE 68; RESP 20; TEMP 36.7; O2SAT 96
[2020-05-14] MEDS: Docusate Sodium 100 MG Capsule PO (10:56)
[2020-05-14 11:47] LABS: Absolute Lymphocyte Count 1.09 X10^3/uL (0.83-4.51); Basophil# 0.02 X10^3/uL; Basophil% 0.2 % (0-1); Eosinophil# 0.17 X10^3/uL; Eosinophils% 1.4 % (0-5); Hematocrit 35.5 % (40-54); Hemoglobin 12.1 g/dL (13.0-16.5); Lymphocyte # 1.09 X10^3/ul (4.0); Lymphocyte % 8.8 % (19-41); Mean Corp Hgb Conc 34.1 g/dL (32-36); Mean Corpuscular Hgb 30.9 pg (27.0-32.0); Mean Corpuscular Volume 90.6 fL (80-94); Mean Platelet Vol. 9.4 fl (6.2-12.0); Monocyte# 0.99 X10^3/uL; NRBC Flagged by Analyzer 0 % (0-5); Neutrophil # 10.01 X10^3/uL (2.7-7.7); Neutrophil % 80.8 % (47-70); Platelet Count 363 K/mm3 (150-450); RBC Distribution Width SD 45.5 fl (35.1-43.9); Red Blood Count 3.92 M/mm3 (4.6-6.2); White Blood Count 12.4 K/mm3 (4.4-11.0)
--- NOTE | 2020-05-14 12:49 | PCM.PN.SRG ---
Patient Problems: Active and Suspected Problems Perianal abscess (Acute) Subjective: Patient having no complaints today. Much less drainage today than last night. Pain is better controlled. Objective: Still draining purulence around the perianal area around the Malecot tube. Perianal area is soft. - Physical Exam Vitals/I&O's: Vital Signs Temp Pulse Resp BP Pulse Ox 98.1 F 68 20 H 158/85 H 96 05/14/20 10:41 05/14/20 10:41 05/14/20 10:41 05/14/20 10:41 05/14/20 10:41 Oxygen Flow Rate (L/min) 2 Oxygen Delivery Method Room Air Weight: 219 lb 12.814 oz Body Mass Index (BMI) 30.1 Intake and Output for Last 24 Hours 05/12/20 05/13/20 05/14/20 23:59 23:59 23:59 Intake Total 1590 / 1590 3347.92 / 3347.92 1535 / 1535 Output Total 675 / 675 375 / 375 Balance 915 / 915 2972.92 / 2972.92 1535 / 1535 Laboratory Results 05/13/20 22:32: Vancomycin Trough 14.8 05/14/20 11:35: WBC 12.4 H, RBC 3.92 L, Hgb 12.1 L, Hct 35.5 L, MCV 90.6, MCH 30.9, MCHC 34.1, RDW Std Deviation 45.5 H, RDW Coeff of Xiao 14.0, Plt Count 363, MPV 9.4, Immature Gran % (Auto) 0.800, Neut % (Auto) 80.8 H, Lymph % (Auto) 8.8 L, [place] % (Auto) 8.0, Eos % (Auto) 1.4, Baso % (Auto) 0.2, Absolute Neuts (auto) 10.0 H, Absolute Lymphs (auto) 1.09, Nucleated RBC % 0 Current Medications Acetaminophen (Tylenol) 650 mg PO Q4H PRN PRN PRN Reason: Pain 1-3 or Fever Last Admin: 05/13/20 13:12 Dose: 650 mg Documented by: Docusate Sodium (Colace) 100 mg PO BID CHARLEEN Last Admin: 05/14/20 10:56 Dose: 100 mg Documented by: Sodium Chloride () 250 mls @ 15 mls/hr IV .[id number] PRN PRN Reason: Saline Flush Last Infusion: 05/13/20 15:30 Dose: 0 mls/hr Documented by: Sodium Chloride () 250 mls @ 15 mls/hr IV .[id number] PRN PRN Reason: Additional IVPB Infusion Piperacillin Sod/Tazobactam (Sod 3.375 gm/ Sodium Chloride) 50 mls @ 12.5 mls/hr IV Q8 CHARLEEN Last Admin: 05/14/20 06:50 Dose: 12.5 mls/hr Documented by: Vancomycin HCl 1,750 mg/ (Sodium Chloride) 535 mls @ 250 mls/hr IV Q12H CHARLEEN Last Infusion: 05/14/20 00:49 Dose: Infused Documented by: Vancomycin IV Pharmacy to Dose (1 ea/ Sodium Chloride) 500 mls @ 250 mls/hr IV PRN PRN; Protocol PRN Reason: Rx to Dose Morphine Sulfate () 2 - 4 mg IV Q2H PRN PRN PRN Reason: Pain Score 4-10/10 Last Admin: 05/13/20 12:29 Dose: 4 mg Documented by: Nutritional Formula (Eddie - [place] Flavor) 1 packet PO BIDCM CHARLEEN Last Admin: 05/14/20 10:53 Dose: 1 packet Documented by: Ondansetron HCl (Zofran) 4 mg IV Q6H PRN PRN PRN Reason: NAUSEA Oxycodone HCl (Oxyir) 5 - 10 mg PO Q4H PRN PRN PRN Reason: Pain Score 1-10/10 Last Admin: 05/14/20 10:51 Dose: 10 mg Documented by: Sodium Chloride () 10 - 40 ml IV UD PRN PRN Reason: SALINE FLUSH Last Admin: 05/14/20 02:06 Dose: 10 ml Documented by: Medical Necessity - Tobacco Use Smoking Status: Current every day smoker Assessment/Plan All Active Problems Perirectal abscess (Acute) Intraabdominal mass (Acute) Perianal abscess (Acute) Significant improvement in white count today. Believe it is okay to discharge him on Augmentin and Flagyl. 1 him to do warm soaks and Epson salts twice daily.
--- NOTE | 2020-05-14 12:51 | PCM.DC.GS ---
Discharge Diet: Light diet - advance as tolerated - If you have questions about your diet instructions, please talk to your doctor. Discharge Activity: May Not Drive - for 1 week or while taking narcotic pain medicine. May shower in (days): 1 Lifting Restrictions: 10 pounds Additional Activity Instructions:: 2 cups of Epson salts in hot water in tub. Soak twice a day. Call your doctor if your incision/area has: Continuous Slow Oozing, Sudden Increased Bleeding, Increased Pain/ Swelling, Increased Redness, Foul Smelling Discharge Call your doctor if you observe: Fever of 101 or Higher Suture Line Care: Avoid Pulling/Pushing, Avoid Pinching/Bending Additional Dressing/Incision Instructions:: Change or remove dressing in 4 days. Leave steri-strips in place for 1 week. Allergies/Adverse Reactions: Allergies No Known Allergies Allergy (Verified 05/12/20 10:34) Medications to take at Discharge Acetaminophen [Tylenol Tablet] 650 mg PO Q4H PRN PRN tab 05/09/20 Amoxicillin/Potassium Clav [Augmentin 875-125 Tablet] 1 ea PO BID #20 tab 05/09/20 Docusate Sodium [Colace] 100 mg PO BID #30 cap 05/09/20 Amox/Clavulanate Tablet [Augmentin Tablet] 1 tab PO Q8H 7 Days #21 tab 05/14/20 Metronidazole [Flagyl] 500 mg PO TID 7 Days #21 tab 05/14/20 Oxycodone HCl/Acetaminophen [Percocet 5/325] 1 - 2 tablet PO Q4H PRN PRN 6 Days #30 tablet 05/14/20 The following prescriptions were given: Amox/Clavulanate Tablet [Augmentin Tablet] 1 tab PO Q8H 7 Days #21 tab Transmission Status: Pending to [facility] Metronidazole [Flagyl] 500 mg PO TID 7 Days #21 tab Transmission Status: Pending to [facility] Oxycodone HCl/Acetaminophen [Percocet 5/325] 1 - 2 tablet PO Q4H PRN PRN 6 Days #30 tablet PRN Reason: Pain Transmission Status: Received by [facility] Primary Care Physician: Care Physician,No Primary [Primary Care Provider] - Test Results: Test results from this visit will be discussed in further detail at your follow-up appointment, if applicable. Please Follow Up With: Álvaro Yuen MD - [phone] When: Call to make an appointment to be seen in about 10 days.
--- NOTE | 2020-05-15 08:12 | DS.PCM_ITS ---
Discharge Date and Diagnosis Date of Admission: 05/12/20 Date of Discharge: 05/14/20 Hospital Course and Treatment Imaging Results: Clinical Impression(s) from Imaging Studies Pelvis CT 05/12/20 10:44 IMPRESSION: Previous seen noted saddle bag shaped perirectal abscess has worsened since the previous study. It is increased in size both right and left of the rectum, and there has been an increase in the induration of the subcutaneous fat particularly in the left gluteal region compared to the previous study. There is been increase of air within the left collection, development of air within the right collection and a bubble of subcutaneous emphysema is noted in the induration of the subcutaneous fat in the left gluteal region. Increase in size and number of multiple bilateral inguinal lymph nodes Electronically Signed: Jeremiah Smith MD at 11:44 EDT , Service support , [employer]: - - Perirectal abscess drainage Procedures: None Summary of Care Provided: The patient is a 54 year old M who had perirectal abscess drained 4 days prior to admission. He readmitted with pain and CT scan showed reaccumulation of the perirectal abscess. Patient was admitted to the floor and started on antibiotics and preoperative optimization. Patient began to have low-grade fevers as well as rigors. Patient was taken to the operating room and perirectal abscess was drained once more and a seton suture was placed and mushroom tip catheter was placed into the abscess cavity and sutured to the skin. Patient was placed in the ICU after surgery for monitoring for possible septic shock. Patient did well the following 2 days and was discharged home in stable condition on oral antibiotics. - Physical Exam Vitals/I&O's: Vital Signs Temp Pulse Resp BP Pulse Ox 98.1 F 68 20 H 158/85 H 96 05/14/20 10:41 05/14/20 10:41 05/14/20 10:41 05/14/20 10:41 05/14/20 10:41 Oxygen Flow Rate (L/min) 2 Oxygen Delivery Method Room Air Weight: 219 lb 12.814 oz Body Mass Index (BMI) 30.1 Intake and Output for Last 24 Hours 06/27/20 06/28/20 06/29/20 23:59 23:59 23:59 Intake Total 3347.92 / 3347.92 2785 / 2785 Output Total 375 / 375 Balance 2972.92 / 2972.92 2785 / 2785 Microbiology Past 72 Hours 05/12/20 10:55 Blood Culture (Wb) - Right Hand Blood Culture - Preliminary No growth in 48 hours. 05/12/20 11:00 Blood Culture (Wb) - Anticubital Left Blood Culture - Preliminary No growth in 48 hours. Laboratory Results 05/14/20 11:35: WBC 12.4 H, RBC 3.92 L, Hgb 12.1 L, Hct 35.5 L, MCV 90.6, MCH 30.9, MCHC 34.1, RDW Std Deviation 45.5 H, RDW Coeff of Xiao 14.0, Plt Count 363, MPV 9.4, Immature Gran % (Auto) 0.800, Neut % (Auto) 80.8 H, Lymph % (Auto) 8.8 L, [place] % (Auto) 8.0, Eos % (Auto) 1.4, Baso % (Auto) 0.2, Absolute Neuts (auto) 10.0 H, Absolute Lymphs (auto) 1.09, Nucleated RBC % 0 Discharge Diet: Light diet - advance as tolerated - If you have questions about your diet instructions, please talk to your doctor. Discharge Activity: May Not Drive - for 1 week or while taking narcotic pain medicine. May shower in (days): 1 Additional Activity Instructions:: 2 cups of Epson salts in hot water in tub. Soak twice a day. Call your doctor if your incision/area has: Continuous Slow Oozing, Sudden Increased Bleeding, Increased Pain/ Swelling, Increased Redness, Foul Smelling Discharge Call your doctor if you observe: Fever of 101 or Higher Suture Line Care: Avoid Pulling/Pushing, Avoid Pinching/Bending Additional Dressing/Incision Instructions:: Change or remove dressing in 4 days. Leave steri-strips in place for 1 week. Home Medications: Medications to take at Discharge Acetaminophen [Tylenol Tablet] 650 mg PO Q4H PRN PRN tab 05/09/20 Amoxicillin/Potassium Clav [Augmentin 875-125 Tablet] 1 ea PO BID #20 tab 05/09/20 Docusate Sodium [Colace] 100 mg PO BID #30 cap 05/09/20 Amox/Clavulanate Tablet [Augmentin Tablet] 1 tab PO Q8H 7 Days #21 tab 05/14/20 Metronidazole [Flagyl] 500 mg PO TID 7 Days #21 tab 05/14/20 Oxycodone HCl/Acetaminophen [Percocet 5/325] 1 - 2 tab PO Q4H PRN PRN 6 Days #30 tab 05/14/20 Following Prescrptions Were Given to Patient: Amox/Clavulanate Tablet [Augmentin Tablet] 1 tab PO Q8H 7 Days #21 tab Transmission Status: Received by [facility] Metronidazole [Flagyl] 500 mg PO TID 7 Days #21 tab Transmission Status: Received by [facility] Oxycodone HCl/Acetaminophen [Percocet 5/325] 1 - 2 tab PO Q4H PRN PRN 6 Days #30 tab PRN Reason: Pain Transmission Status: Received by [facility] Primary Care Physician: Care Physician,No Primary [Primary Care Provider] - Please Follow Up With: Álvaro Yuen MD - [phone] When: Call to make an appointment to be seen in about 10 days. Medical Necessity - Tobacco Use Smoking Status: Current every day smoker Meaningful Use Info Meaningful Use Diagnoses (Choose all that apply): None applicable
== END 2020-05-14 13:43 | disposition home or self-care (01) | DRG 347 ==
LOC: ED 12:06 → MS3 12:49 → ICU 14:43 → MS3 05-14 06:08
PROVIDERS: Internal Medicine Critical Care Medicine; Surgery; Admitting Provider Surgery; Emergency Provider Emergency Medicine; Visit Provider Surgery
PROC: 0DBP3ZZ Excision of Rectum, Percutaneous Approach (ICD-10-PCS; principal; 2020-05-12 14:45)
DX: K61.2 Anorectal abscess (principal); R65.21 Severe sepsis with septic shock; T81.44XA Sepsis following a procedure, initial encounter; T81.40XA Infection following a procedure, unspecified, initial encounter; B96.89 Other specified bacterial agents as the cause of diseases classified elsewhere; F17.200 Nicotine dependence, unspecified, uncomplicated; Y83.8 Other surgical procedures as the cause of abnormal reaction of the patient, or of later complication, without mention of misadventure at the time of the procedure; Y92.239 Unspecified place in hospital as the place of occurrence of the external cause
CPT/HCPCS: 36415; 72193; 80048; 80053; 80202; 83605; 84484; 85025; 87040; 87077; 93005; 99251; 99284; 99406; J7030; J7040; J7050; Q9967; A4216; G0463; J2405

== ENCOUNTER 2020-10-29 19:06 | Emergency (ER) | payer SELFPAY ==
[2020-05-12 14:45] VITALS: BMI 30.1
[2020-10-29 19:07] VITALS: BP 150/82; PULSE 50; RESP 18; TEMP 36.3; O2SAT 100; BMI 28.5
--- NOTE | 2020-10-29 19:47 | ED.VIS.GEN ---
History of Present Illness Chief Complaint: Abscess Informant: Patient Narrative: 55-year-old male with previous rectal abscess managed by Dr. Fabian previously 05/12/2020. Patient had a drain placed as well. Apparently had a large abscess with the fistula. Patient had recovered fairly well but states he still had drainage. He complains of worsening drainage recently. He is not had any fever, chills, nausea, vomiting. He is not been on any recent antibiotics. Past Medical History - Allergies and Home Meds Allergies/Adverse Reactions: Allergies No Known Allergies Allergy (Verified 10/29/20 19:07) Primary Care Physician: Care Physician,No Primary [Primary Care Provider] - Prior records reviewed: Yes Past Medical History: - - Denies significant medical history Surgical History: - - Perirectal abscess Lives: Alone Smoking Status: Current every day smoker Alcohol: None Drugs: None - Family History Maternal Family History: Reports: No pertinent history Review of Systems General: Denies: Chills, Fever, Sweats Eyes: Denies: Visual changes - bilaterally, Diplopia ENT: Denies: Rhinorrhea, Sore throat Cardiovascular: Denies: Chest pain, Palpitations Respiratory: Denies: Dyspnea, Cough, Dyspnea on exertion Gastrointestinal: Reports: - - Perirectal abscess with drainage. Denies: Abdominal pain, Nausea, Vomiting, Diarrhea, Melena, Hematochezia Genitourinary: Denies: Dysuria, Hematuria, Frequency Skin: Reports: Abscess - Rectal abscess with drainage. Denies: Wounds Neurological: Denies: Headache, Weakness Psych: Denies: Depression, Anxiety Physical Exam Vital Signs/Narrative: Vital Signs Temp Pulse Resp BP Pulse Ox 10/29/20 19:07 97.4 F L 50 L 18 150/82 H 100 Inital Vital Signs reviewed: Yes General: Well nourished, No Acute Distress Head: Normocephalic Eyes: Perrl, EOMI ENT: Moist mucous membranes Neck: Supple, Nontender Cardiovascular: Regular rate, Regular rhythm Respiratory: No distress, CTA bilaterally Abdomen: Soft, Nontender, Nondistended Rectal: - - Perirectal abscess with about 2.5 cm opening with purulent charge from the wound. Extremities: Nontender, No edema Skin: Normal color, No rash. Negative for: Cyanosis, Diaphoresis Neurological: Alert, Oriented x3 Psychological: Normal affect, Normal Mood Diagnostic/Tx/Re-eval - Medical Decision Making Patient was discussed with Dr. Li who recommended putting the patient on Cipro and Flagyl as this worked for him in the past. He will be given Percocet for pain. Patient is to call the office first thing in the morning Dr. Domínguez set him up for an office visit and see if he can manage washing it out there if not he will plan on taking him to the OR for surgical washout. Low to this plan. He is discharged in stable condition. Impression: 1. Perirectal abscess ED Disposition - Plan for ED Patient: Disposition: Home or Assisted Living Diagnosis: Perirectal abscess Referrals: Care Physician,No Primary [Primary Care Provider] - Wilner Li MD [STAFF PHYSICIAN] -
[2020-10-29] MEDS: Ciprofloxacin 250 MG Tablet 500 MG PO (20:10)
[2020-10-29] MEDS: metroNIDAZOLE 500 MG Tablet PO (20:10)
[2020-10-29] MEDS: oxyCODONE 5 MG Tablet PO (20:21)
[2020-10-29 20:24] VITALS: RESP 17
== END 2020-10-29 20:25 | disposition home or self-care (01) ==
PROVIDERS: Emergency Provider Student in an Organized Health Care Education/Training Program
DX: K61.1 Rectal abscess (principal); F17.200 Nicotine dependence, unspecified, uncomplicated
CPT/HCPCS: 99283

== ENCOUNTER 2020-10-30 11:04 | Day surgery (SDC) | payer SELFPAY ==
[2020-10-29 19:07] VITALS: BMI 28.5
[2020-10-30] VITALS (7 sets, daily range): BP systolic 150–169; BP diastolic 81–96; PULSE 45–78; RESP 18–20; TEMP 36.1–36.4; O2SAT 98–100; BMI 29.4
[2020-10-30] MEDS: Lactated Ringers 1,000 ML 100 ML IV (11:45)
--- NOTE | 2020-10-30 12:46 | PCM.HP.BLA ---
Problem List (1) Perirectal abscess Status: Acute History and Physical Date of Admission: 10/30/20 Intake Intake Visit Reasons: HOSPITAL F/U, POSSIBLE SURGERY Chief Complaint: recheck rectum Allergies No Known Allergies Allergy (Verified 10/30/20 08:07) [facility] Medical History Perirectal abscess (Acute) Intraabdominal mass (Acute) Perianal abscess (Acute) Surgical History history incision and drainage pilonidal cyst (Acute ~05/12/20) Social History (Updated 10/30/20 @ 08:[address] Wilner Li MD) Smoking Status: Current every day smoker HPI HPI HPI: JANES RENDON, is a 55 M who presents to the office today for HPI HPI HPI: JANES RENDON, is a 55 M who presents to the office today for Drainage from around his rectum. The patient has been experiencing drainage for a few months since the seton suture was removed but I had not seen him in office. The patient reports that lately has become more painful and gotten larger. He is not having any abdominal pain or fevers or chills. Patient was in the emergency room last night and received antibiotics and was instructed to come to my office morning for an I&D this afternoon. ROS General General: No weight change or fatigue Cardio Cardiovascular: No murmur, pacemaker, heart disease, atrial fibrillation, high blood pressure, heart attack, heart stent, palpitations, shortness of breat with exertion or chest pain Psych Psychiatric: No depression or anxiety Resp Respiratory: No shortness of breath, No sleep apnea, No cough, No COPD, No asthma, No emphysema, No wheezing Gastro Gastrointestinal: No abdominal pain, No nausea or vomiting, No diarrhea, No constipation, No blood in stool, No acid reflux, No hemorrhoids, No ulcers, No gallbladder problem, No black,tarry stools Additional Details: Perirectal pain with draining pus. Foreign Hematologic: No blood thinners Exam Const General: cooperative Orientation: alert, oriented x3 Resp Effort & Inspection: normal respiratory effort Auscultation: clear to auscultation bilaterally Cardio Rate: regular rate Rhythm: regular rhythm Heart Sounds: no murmurs GI Inspection: non-distended Palpation: soft, nontender Other: Perirectal abscess with tenderness and purulent drainage Assessment & Plan Problems 1. Perirectal abscess K61.1 Plan The patient has a perirectal abscess. He did have a seton suture placed in a fistula for this over the summer. After taking his antibiotics the drainage had decreased and a seton was removed. The patient never followed up but reported that he was doing well and then I come to find that the patient reports that there has been drainage ever since the seton was removed. The abscess has gotten worse in the last few days and he was in the emergency room last night. The patient has remained n.p.o. today and was started on Cipro and Flagyl by the emergency room. I will take the patient this afternoon for incision and drainage of the area and possible fistulectomy. Patient was informed of the risks of bleeding, infection, need for further surgery, packing of the wound. The patient understands the risks and is willing to proceed. Wilner Li MD Pager: [facility] [address] [place] [address] [address] [place] [address] Office:
[2020-10-30] MEDS: Cefotetan 2 GM in 0.9% NS 100 ML IV (12:56)
[2020-10-30] MEDS: Bupivacaine Mpf 0.5% 30 ML VIAL (13:35)
--- NOTE | 2020-10-30 14:01 | PCM.OPRPT ---
Problem List (1) Perirectal abscess Status: Acute Report of Operation Date of Procedure: 10/30/20 Pre-Operative Diagnosis: Perirectal abscess Post-Operative Diagnosis: Same Surgery/Procedure Performed:: Exam under anesthesia with perirectal abscess drainage Specimen's removed: Culture of fluid Description of Procedure: Patient was brought back to the operating room and general anesthesia was induced. The patient was placed in prone jackknife position and the buttocks were taped open. The perineum and anus were prepped and usual sterile fashion. There was purulent discharge from the abscess cavity which was cultured. Hemostats were used to probe the abscess cavity and a scalpel was used to open the skin. The skin was opened in a T-shaped incision to allow for adequate drainage of the undermining abscess cavity. The area underneath was irrigated copiously and hemostasis was obtained using electrocautery. A well-lubricated speculum was placed into the anus and it was inspected. There is no purulence or abscess or bloody drainage in the rectal cavity and fistula was not identified. The cavity in the perirectal area was packed with half-inch iodoform gauze and a dressing. Patient was then awoken and taken to PACU in stable condition. - Admit VTE Documentation VTE Mechan Device Prophylaxis: SCD's
--- NOTE | 2020-10-30 14:06 | DCINST_ITS ---
Discharge Diet: No Restrictions Discharge Activity: Return to Normal Activity, May Not Drive - while you are taking narcotic pain medications. Do not drive, work with heavy equipment or sign legal documents for 24 hours after your surgery., May Take a Tub Bath Additional Activity Instructions:: Be aware that pain medications may cause nausea. You should typically eat light foods as you take your pain medications. Pain medications may also cause constipation, if you have difficulty with this please discuss with your doctor. Take sitz baths three times per day if possible. Call your doctor if your incision/area has: Continuous Slow Oozing, Sudden Increased Bleeding, Increased Pain/ Swelling, Increased Redness, Foul Smelling Discharge, Swelling at the incision site Call your doctor if you observe: Fever of 101 or Higher Allergies/Adverse Reactions: Allergies No Known Allergies Allergy (Verified 10/30/20 11:22) Medications to take at Discharge Oxycodone HCl/Acetaminophen [Percocet 5/325] 1 tab PO Q6H PRN PRN 3 Days #12 tab 10/29/20 Ciprofloxacin [Cipro] 500 mg PO BID 10 Days #20 tab 10/30/20 Metronidazole [Flagyl] 500 mg PO TID 10 Days #30 tab 10/30/20 Oxycodone HCl/Acetaminophen [Percocet 5-325 mg Tablet] 1 - 2 tab PO Q6H PRN PRN 5 Days #40 tab 10/30/20 The following prescriptions were given: Ciprofloxacin [Cipro] 500 mg PO BID 10 Days #20 tab Transmission Status: Pending to [facility] Metronidazole [Flagyl] 500 mg PO TID 10 Days #30 tab Transmission Status: Pending to [facility] Oxycodone HCl/Acetaminophen [Percocet 5-325 mg Tablet] 1 - 2 tab PO Q6H PRN PRN 5 Days #40 tab PRN Reason: Pain Score 4-10/10 Transmission Status: Sent to [facility] Primary Care Physician: Care Physician,No Primary [Primary Care Provider] - Test Results: Test results from this visit will be discussed in further detail at your follow- up appointment, if applicable. Please Follow Up With: Wilner Li MD When: Please call to schedule follow up appointment for this week. [phone]
== END 2020-10-30 15:13 | disposition home or self-care (01) ==
LOC: SDC 11:06 → AC 11:06
PROVIDERS: Referring Provider Surgery; Visit Provider Surgery
PROC: (CPT 46040; principal; 2020-10-30 12:45)
DX: K61.1 Rectal abscess (principal); F17.200 Nicotine dependence, unspecified, uncomplicated
CPT/HCPCS: 00902; 46040; 87070; 87075; 87077; 87186; 87205; 87426; J7120